=== PATIENT | male | born 1950 | race Caucasian/White ===

== ENCOUNTER → 2017-01-01 17:14 | Outpatient (CLI) | payer OTHER, SELFPAY ==
[2017-01-01 19:17] LABS: Cytology, Body Fluid / CSF SEE PATHOLOGY REPORT
[2017-01-09 10:45] LABS: Aldosterone, Serum 5.8 ng/dL (0.0-30.0); Renin, Plasma 1.303 ng/mL/hr (0.167-5.380)
== END | disposition home or self-care (01) ==
PROVIDERS: Visit Provider Urology
DX: C67.4 Malignant neoplasm of posterior wall of bladder (principal); D35.01 Benign neoplasm of right adrenal gland
CPT/HCPCS: 36415; 82088; 84244; 88108; 88313

== ENCOUNTER → 2017-09-11 14:38 | Outpatient (CLI) | payer OTHER, SELFPAY ==
--- NOTE | 2017-09-11 15:04 | CT_ITS ---
STUDY: CT CHEST WITH CONTRAST REASON FOR EXAM: Male, 66 years old. Metastatic renal cancer. RADIATION DOSAGE (If Supplied By Facility): CTDIvol = ( 19.55 ) mGy, DLP = ( 742.10 ) mGycm TECHNIQUE: Transaxial imaging was performed following intravenous administration of 100 ml of Isovue 300 contrast material. Individualized dose optimization techniques were used for this CT. COMPARISON: Multiple previous studies including CT of the chest 06/12/2017. FINDINGS: Normal lung volumes. Stable pleural-parenchymal scarring in the lower right hemithorax with elevation of the right hemidiaphragm and blunting of the right costophrenic angle. Stable 8 mm pleural-based nodule in the anterior right apex. No other nodules. Stable generalized volume loss on the right compared to left probably related to pleural parenchymal scarring in the lower hemithorax. Stable mild scarring anterior left lung base. Stable mild pleural plaque posterior left thorax. Stable cortical scarring across the posterior right lung base. Stable irregular pleural base soft tissue density or thickening adjacent to the right diaphragm Stable very small chronic right pleural effusion. No infiltrates. Normal heart and pericardium. Increasing mediastinal adenopathy enhancing subcarinal lymph node now measures 2.8 cm in greatest dimension versus 1.8 cm previously. Right paraesophageal enhancing lymph node now measures 2.3 cm versus 1 cm previously. The upper abdomen show fatty liver without focal abnormalities. No other definite abnormalities. Skeletal structures are grossly negative. CT/Chest WITH Contrast IMPRESSION: Stable findings in the lungs including stable pleural-parenchymal scarring in the lower right hemithorax. Increasing size of a subcarinal and right lower paraesophageal lymph node since previous exam. Electronically Signed: Feliz Phillips MD at 11:05 EDT , Service support ,
[2017-09-11 15:36] LABS: CREATININE FINGERSTICK 1.2 mg/dL (0.70-1.30)
== END ==
PROVIDERS: Family Provider Family Medicine; PCP Family Medicine; Visit Provider Urology
DX: C67.9 Malignant neoplasm of bladder, unspecified (principal); Z85.53 Personal history of malignant neoplasm of renal pelvis
CPT/HCPCS: 71260; Q9967

== ENCOUNTER 2017-10-05 07:43 | Day surgery (SDC) | payer OTHER, SELFPAY ==
[2017-09-28 13:15] VITALS: BP 138/77; PULSE 67; RESP 16; TEMP 36.9; O2SAT 96; BMI 33.9
[2017-09-28 13:38] LABS: Hematocrit 48.7 % (40-54); Hemoglobin 16.2 g/dl (13.0-16.5); Mean Corp Hgb Conc 33.3 g/gl (32-36); Mean Corpuscular Hgb 30.1 pg (27.0-32.0); Mean Corpuscular Volume 90.5 fL (80-94); Mean Platelet Vol. 10.4 fl (6.2-12.0); Platelet Count 289 K/mm3 (150-450); RBC Distribution Width CV 14.1 % (11.6-14.6); RBC Distribution Width SD 46.7 fl (35.1-43.9); Red Blood Count 5.38 M/mm3 (4.6-6.2); White Blood Count 10.6 K/mm3 (4.4-11.0)
[2017-09-28 13:39] LABS: Scan Indicated on CBC? Y/N NO
[2017-09-28 14:17] LABS: Thyroid Stim Hormone (TSH) 0.43 uIU/mL (0.358-3.74)
--- NOTE | 2017-10-05 | BLB_PTH ---
PATIENT: ASIA CAPPS LOC: [facility] [place][id number] AGE/SX: 66/M ROOM: RE10/05/[address]: Dr. Dionicio Teresa MD : 1950 BED: DIS: 10/05/2017 SPEC #: [id number] RECD: 10/05/17 13:45 STATUS: CLARISA AMANDA #: [id number] LAURA: 10/05/17 00:[address]: Dionicio Teresa DEPT: SURGICAL PATHOLOGY RECD BY: Bright Garcia ENTERED: 10/05/17 13:46 SP TYPE: TURB OTHR DR: Dr. Cara Valentine MD Tissues: Urinary bladder, NOS Procedures: Surgery Specimen Level IV HEADER OPERATION: Cysto, transurethral resection bladder, [employer] PRE-OP DIAGNOSIS: Bladder cancer TISSUE SUBMITTED: Bladder biopsy MICROSCOPIC DIAGNOSIS Bladder, biopsy: Focal marked urothelial atypia suspicious for flat carcinoma in situ.. Chronic inflammation and extensive calcification. SJ:lucy 10/08/17 COMMENT Immunohistochemistry ([id number]) supports the above diagnosis. Please make reference to previous specimen ([id number]) urinary bladder tumor, TUR with diagnosis of focal dysplastic epithelium suspicious for carcinoma in situ. Clinical correlation and appropriate follow up are necessary. Case has been reviewed in consultation with Dr. Terrell who concurs with the above diagnosis. IDC:AM MICROSCOPIC DESCRIPTION Slides are reviewed. GROSS DESCRIPTION Received in fixative is one container labeled with the patient's name and designated bladder biopsy. The specimen consists of three irregular fragments of coronado soft tissue that in aggregate measure 0.3 x 0.2 x 0.1 cm. The specimen is totally submitted in one cassette. / MARVA:lucy 10/05/17 TC:0 CPT: 37558
--- NOTE | 2017-10-05 | IMM_PTH ---
PATIENT: ASIA CAPPS LOC: [facility] [place] U#:[id number] AGE/SX: 66/M ROOM: RE10/05/[address]: Dr. Dionicio Teresa MD : 1950 BED: DIS: 10/05/2017 SPEC #: [id number] RECD: 10/08/17 14:28 STATUS: CLARISA REDavid #: [id number] LAURA: 10/05/17 00:[address]: Dionicio Teresa DEPT: IMMUNOHISTOCHEMISTRY RECD BY: Brianna Mosquera ENTERED: 10/08/17 14:29 SP TYPE: IMMUNO OTHR DR: Dr. Cara Valentine MD Tissues: Urinary bladder, NOS Procedures: CK20 (add) P53 (add) CK7 (initial) PHYSICIAN & INSTITUTION [place] [id number] SPECIMEN INFORMATION: Tissue Source: Bladder biopsy Clinical Info: Bladder cancer Specimen Number: [id number] CPT code: 98194, 27752 x2 METHODOLOGY: Deparaffinized sections of prefer/formalin-fixed tissue or PAP/DQ stained slides are incubated with monoclonal/polyclonal antibodies/oligonucleotide probes. Localization is made via biotin free immunoperoxidase method. Appropriate controls are performed and reacted as expected. Results on target cell population are indicated in the following table: RESULTS: ANTIBODY / CLONE RESULT CK7 (OV-TL12/30) positive CK20 (KS20.8) positive, focal, only in the umbrella cells. P53 (DO-7) positive These tests were developed and their performance characteristics determined by [facility]. They may not have been cleared or approved by the U.S. Food and Drug Administration. The FDA has determined that such clearance or approval is not necessary. INTERPRETATION: Bladder biopsy: Focal marked urothelial atypia suspicious for flat carcinoma in situ. SJ:lucy 10/09/17
[2017-10-05 08:23] VITALS: BP 114/76; PULSE 75; RESP 18; TEMP 37.5; O2SAT 96; BMI 33.9
[2017-10-05] MEDS: Cefazolin 2 GM in 0.9% Normal Saline 100 ML IV (10:58)
--- NOTE | 2017-10-05 11:25 | PCM.DC.URO ---
Discharge Diet: Light diet - advance as tolerated Discharge Activity: Return to Normal Activity Call your doctor if your incision/area has: Sudden Increased Bleeding Allergies/Adverse Reactions: Allergies lisinopril Allergy (Verified 09/28/17 13:01) Angioedema Medications to take at Discharge Amlodipine [Norvasc] 5 mg PO DAILY 11/19/13 Docusate Sodium [Colace] 100 mg PO DAILY 11/19/13 Fenofibrate [Tricor] 145 mg PO DAILY 11/19/13 Hydrocortisone 1% Crm [Hytone] 1 applic TOPICAL DAILY 11/19/13 Levothyroxine Sodium [Levoxyl] 175 mcg PO DAILY 11/19/13 Calcipotriene/Betamethasone [Calcipotriene-Betameth Dp Oint] 60 gm TP DAILY 02/07/16 Clobetasol Propionate/Emoll [Clobetasol Emollient 0.05% Crm] 30 gm TP DAILY 03/15/17 Betamethasone Dipropionate 15 gm TP DAILY 09/28/17 Ibuprofen/Diphenhydramine Cit [Advil Pm Caplet] 1 each PO PRN PRN 09/28/17 Ciprofloxacin [Cipro] 500 mg PO BID #6 tab 10/05/17 Hydrocodone/Acetaminophen [Biddle 5-325 Tablet] 1 ea PO Q4H PRN PRN 5 Days #14 tab 10/05/17 The following prescriptions were given: Hydrocodone/Acetaminophen [Biddle 5-325 Tablet] 1 ea PO Q4H PRN PRN 5 Days #14 tab PRN Reason: Pain Ciprofloxacin [Cipro] 500 mg PO BID #6 tab Primary Care Physician: Cara Valentine MD [Primary Care Provider] - Please Follow Up With: Dionicio Teresa MD When: follow up to be determined by path report, will call.
--- NOTE | 2017-10-05 11:27 | PCM.OPRPT ---
Report of Operation Date of Procedure: 10/05/17 Pre-Operative Diagnosis: Bladder cancer, tumor and lateral wall bladder with a bladder stone attached Post-Operative Diagnosis: The same Surgery/Procedure Performed:: Cystoscopy, transurethral resection of bladder tumor, c cystolitholapaxy and removal of small bladder stones. Instillation of mitomycin-C Description of Surgical Findings:: 66-year-old male taken back to the operating room after smooth induction of general anesthesia penis testicles were prepped and draped in usual sterile fashion, went into the bladder through the urethra with a 21 [place] rigid cystourethroscope the entire length of the urethra is normal pendulous urethra is normal bulbar urethra normal sphincter intact prostate mild hypertrophy but no severe obstruction inside the bladder he had on the lateral wall of the left side of the bladder papillary looking little tumor and stones encrusted on top of this I then used a biopsy forcep to scrape off the stones flush out the stones and then resected the area on the left side of the bladder. Specimen was sent off to the pathologist. I then cauterized the left side to obtain good hemostasis. I then distended the bladder inspected the bladder again the right ureteral orifice was normal, the left ureteral orifice had been resected and had a wide open ureteral orifice. There were a few reddish-looking areas in the trigone that were cauterized and on the right lateral wall. 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 Type of Anesthesia:: General Drains: none - Admit VTE Documentation VTE Present on Admission: No VTE Mechan Device Prophylaxis: SCD's VTE Pharm Prophylaxis ordered?: No Reason prophylaxis not ordered:: Treatment Not Indicated
--- NOTE | 2017-10-05 11:30 | OP.PCM_ITS ---
Report of Operation Date of Procedure: 10/05/17 Pre-Operative Diagnosis: Bladder cancer, tumor and lateral wall bladder with a bladder stone attached Post-Operative Diagnosis: The same Surgery/Procedure Performed:: Cystoscopy, transurethral resection of bladder tumor, c cystolitholapaxy and removal of small bladder stones. Instillation of mitomycin-C Description of Surgical Findings:: 66-year-old male taken back to the operating room after smooth induction of general anesthesia penis testicles were prepped and draped in usual sterile fashion, went into the bladder through the urethra with a 21 [place] rigid cystourethroscope the entire length of the urethra is normal pendulous urethra is normal bulbar urethra normal sphincter intact prostate mild hypertrophy but no severe obstruction inside the bladder he had on the lateral wall of the left side of the bladder papillary looking little tumor and stones encrusted on top of this I then used a biopsy forcep to scrape off the stones flush out the stones and then resected the area on the left side of the bladder. Specimen was sent off to the pathologist. I then cauterized the left side to obtain good hemostasis. I then distended the bladder inspected the bladder again the right ureteral orifice was normal, the left ureteral orifice had been resected and had a wide open ureteral orifice. There were a few reddish-looking areas in the trigone that were cauterized and on the right lateral wall. 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 Type of Anesthesia:: General Drains: none - Admit VTE Documentation VTE Present on Admission: No VTE Mechan Device Prophylaxis: SCD's VTE Pharm Prophylaxis ordered?: No Reason prophylaxis not ordered:: Treatment Not Indicated
[2017-10-05 11:37] VITALS: BP 114/76; BP 121/77; PULSE 88; RESP 16; TEMP 36.2; O2SAT 93
[2017-10-05 11:45] VITALS: BP 114/76; BP 128/78; PULSE 81; RESP 16; O2SAT 93
[2017-10-05 12:01] VITALS: BP 114/76; BP 115/81; PULSE 84; RESP 16; TEMP 36.4; O2SAT 95
[2017-10-05 13:00] VITALS: BP 114/76
== END 2017-10-05 13:05 | disposition home or self-care (01) ==
LOC: SDC 07:43 → AC 07:44
PROVIDERS: Anesthesiology; Family Provider Family Medicine; PCP Family Medicine; Visit Provider Urology
PROC: 0TBB8ZZ Excision of Bladder, Via Natural or Artificial Opening Endoscopic (ICD-10-PCS; CPT 51720; principal; 2017-10-05 10:40)
DX: C67.2 Malignant neoplasm of lateral wall of bladder (principal); N30.20 Other chronic cystitis without hematuria; N21.0 Calculus in bladder; N40.0 Benign prostatic hyperplasia without lower urinary tract symptoms; L40.9 Psoriasis, unspecified; E78.00 Pure hypercholesterolemia, unspecified; Z79.899 Other long term (current) drug therapy; Z85.528 Personal history of other malignant neoplasm of kidney
CPT/HCPCS: 51720; 52234; 52317; 84443; 85027; 88305; 88307; 88341; 88342; J7120; J2405; J3490; J9280

== ENCOUNTER 2017-11-05 12:20 | Inpatient (IN) | payer BC, SELFPAY ==
[2017-11-05] VITALS (27 sets, daily range): BP systolic 108–165; BP diastolic 70–109; PULSE 82–162; RESP 14–29; TEMP 36.3–36.9; O2SAT 92–96; BMI 33.8; BMI 33.9; BMI 33.3
--- NOTE | 2017-11-05 12:58 | EKG12_ITS ---
Test Reason : PALPS Blood Pressure : / mmHG Vent. Rate : 137 BPM Atrial Rate : 150 BPM P-R Int : 112 ms QRS Dur : 106 ms QT Int : 302 ms P-R-T Axes : 088 012 032 degrees QTc Int : 456 ms Sinus tachycardia Otherwise normal ECG Confirmed by CHRISTIE SON, ADAM ([id number]), makeup editor JUAN PABLO SALAZAR ([id number]) on 11/09/2017 2:09:02 PM Referred By: CASE/SYED Confirmed By:ADAM SORIANO MD
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
--- NOTE | 2017-11-05 13:02 | RAD_ITS ---
STUDY: X-RAY CHEST REASON FOR EXAM: Male, 66 years old. Palpitations. History of renal carcinoma and bladder carcinoma. TECHNIQUE: AP and lateral views of the chest. COMPARISON: Comparison is made with prior study dated March 15, 2017. FINDINGS: EKG electrodes are seen. Pleural parenchymal changes at the right lung base. These have progressed as compared to prior study. Mild increase in markings at the left lung base suggestive of atelectasis. Normal size heart. Normal mediastinum and kaya. Normal visualized pulmonary arteries. Normal visualized aortic arch and descending thoracic aorta. Normal visualized thoracic spine. Normal visualized ribs, clavicles, and shoulders. There is no demonstrated abnormality of the visualized soft tissue structures of the upper abdomen. RAD/Chest 1 View (Portable) IMPRESSION: Atelectasis and/or infiltrates at both lung bases more prominent on the right side with blunting of the right costophrenic angle. Electronically Signed: Avel Samuels MD at 14:03 EDT Tel [phone], Service support ,
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
[2017-11-05 13:16] LABS: Basophil# 0.04 X10^3/uL; Basophil% 0.3 % (0-1); Eosinophil# 0.45 X10^3/uL; Eosinophils% 3.9 % (0-5); Hematocrit 48.4 % (40-54); Hemoglobin 16.3 g/dl (13.0-16.5); Lymphocyte % 23.6 % (19-41); Mean Corp Hgb Conc 33.7 g/gl (32-36); Mean Corpuscular Hgb 30.5 pg (27.0-32.0); Mean Corpuscular Volume 90.5 fL (80-94); Mean Platelet Vol. 10.8 fl (6.2-12.0); Monocyte# 1.23 X10^3/uL; Monocyte% 10.8 % (0-10); Neutrophil # 6.98 X10^3/uL (2.7-7.7); Neutrophil % 61.1 % (47-70); Platelet Count 276 K/mm3 (150-450); RBC Distribution Width CV 14.1 % (11.6-14.6); RBC Distribution Width SD 45.6 fl (35.1-43.9); Red Blood Count 5.35 M/mm3 (4.6-6.2); White Blood Count 11.4 K/mm3 (4.4-11.0)
[2017-11-05 13:17] LABS: POSITIVE COUNT NO; POSITIVE DIFFERENTIAL NO; POSITIVE MORPHOLOGY NO
[2017-11-05] MEDS: Metoprolol Tartrate 5 MG/5 ML Vial IV ×2 (13:20→13:46)
[2017-11-05 13:21] LABS: Anion Gap 7 (5-15); BUN 19 mg/dL (7-18); BUN/Creat Ratio 16.2 RATIO (10-20); Calcium,Total 9.4 mg/dL (8.5-10.1); Chloride 110 mmol/L (98-107); Creatinine, Serum 1.17 mg/dL (0.70-1.30); EST Glomerular Filtration Rate 67 mL/min (>60); Est Glom Filt Rate - Afr Amer 81 mL/min (>60); Estimated Creatinine Clearance 72.08 ml/min; Glucose 103 mg/dL (74-106); Potassium 4.1 mmol/L (3.5-5.1); Sodium Level 142 mmol/L (136-145)
[2017-11-05 13:42] LABS: Bacteria 0 SEEN /hpf (None Seen); Mucous, Urine 0 SEEN /hpf (<or=2+)
[2017-11-05 13:48] LABS: Color, Urine Yellow (Yellow); Glucose, Dipstick Normal (Normal); Ketone-Dipstick Negative (Negative); Leukocyte Esterase-Dipstick 500 /ul (Negative); Nitrite-Dipstick Negative (Negative); Occult Blood-Urine 150 /ul (Negative); Protein-Dipstick 100 mg/dl (Negative); Urine Bilirubin Dipstick Negative (Negative); Urine Clarity Cloudy (Clear); Urine Urobilinogen Normal (Normal)
[2017-11-05 13:56] LABS: White Blood Cells >100 SEEN /hpf (0-5)
[2017-11-05 13:57] LABS: Red Blood Cells-Urine 0-5 SEEN /hpf (0-5); Squamous Epithelial Cells - UA 0-5 SEEN /hpf (0-5)
[2017-11-05 14:11] LABS: D-Dimer Quantitative (DVT/PE) 0.78 FEU/ug/m (0.27-0.49)
--- NOTE | 2017-11-05 14:12 | ED.RN ---
DR LYNCH NOTIFIED OF DDIMER RESULTS
--- NOTE | 2017-11-05 14:23 | CT_ITS ---
STUDY: CTA CHEST REASON FOR EXAM: Male, 66 years old. Palpitations. Elevated d-dimer. RADIATION DOSAGE (If Supplied By Facility): CTDIvol = ( 16.68 ) mGy, DLP = ( 728.90 ) mGycm TECHNIQUE: The examination was performed with the intravenous administration of 100 ml of Isovue 370 contrast material. Post-processing of the angiographic images was performed, with multiplanar reformation and 3D reconstruction. Individualized dose optimization techniques were used for this CT. COMPARISON: Chest, November 05, 2017. CT of the chest, September 11, 2017. FINDINGS: Normal enhancement of the main pulmonary artery and right and left pulmonary arteries. Normal enhancement of the bilateral peripheral pulmonary arteries. There is no demonstrated pulmonary embolism. Normal thoracic aorta and visualized great vessels. There is no demonstrated aortic dissection. Normal heart. There is minimal pericardial effusion versus pericardial thickening anteriorly. There is nonspecific subcentimeter prevascular paratracheal and AP window lymphadenopathy. There is a 3.2 x 2.1 x 3.5 cm subcarinal lymph node. Normal hilar regions. Normal visualized trachea and bronchi. The lungs are well expanded. There is minimal atelectatic cysts at the right lung base. Lungs are otherwise clear. There is a tiny right pleural effusion. Normal chest wall structures. Normal osseous structures. There is a type I hiatal hernia. The abdomen is unchanged. CT/CTA Chest W/WO Contrast IMPRESSION: 1. No evidence of pulmonary embolus. 2. No aortic dissection or aneurysm. 3. Small right pleural effusion and atelectasis. 4. Stable enlarged left subcarinal lymph node. 5. Hiatal hernia Electronically Signed: Martín Davenport DO at 15:14 EDT Tel [phone], Service support ,
[2017-11-05] MEDS: 0.9% Normal Saline 1,000 ML 999 ML IV (14:27)
[2017-11-05] MEDS: Enoxaparin 120 MG/0.8 ML Syringe SC (15:52)
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
[2017-11-05] MEDS: dilTIAZem 25 MG/5 ML Vial 10 MG IV BOLUS (18:00)
--- NOTE | 2017-11-05 20:06 | ECHOTEE_ITS ---
Reason For Study: AFIB Medication WHITLEY probe passed with minimal difficulty. No complications were noted. Cetacaine Topical [place] given X3 orally. Versed 2 mg given slow IVP. Fentanyl 50 mcg given slow IVP. Performed a rapid injection of agitated mix of 9 cc saline and 1cc air to assess for atrial septal defect. Left Ventricle Normal LV size. Left ventricular systolic function is normal. The estimated ejection fraction is 60 %. No regional wall motion abnormalities noted. Right Ventricle Normal RV size. Normal systolic function. Atria Bubble contrast study negative for right to left interatrial shunt. Normal left atrium. No thrombus is detected in the left atrial appendage. Normal right atrium. Mitral Valve Normal mitral valve. Mild (1+) eccentric mitral valve insufficiency. Tricuspid Valve Normal tricuspid valve. Mild (1+) tricuspid valve insufficiency. Aortic Valve Normal aortic valve. Trisinus/trileaflet aortic valve. Pulmonic Valve Normal pulmonic valve. Vessels Normal aortic root. The pulmonary artery is normal size. Pericardium No pericardial effusion. Interpretation Summary Normal LV size. Left ventricular systolic function is normal. The estimated ejection fraction is 60 %. No thrombus is detected in the left atrial appendage. Mild (1+) eccentric mitral valve insufficiency. Mild (1+) tricuspid valve insufficiency. Ordering Physician: Austyn Cassidy Referring Physician: Dionicio Teresa Performed By: Amanda Schwartz, RDCS, RVT
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
[2017-11-05] MEDS: 0.9% NaCl Peripheral Flush Adult/Peds IV (20:50)
[2017-11-05] MEDS: dilTIAZem 25 MG/5 ML Vial 20 MG IV BOLUS (20:51)
[2017-11-05] MEDS: Furosemide 20 MG/2 ML VIAL IV (20:51)
[2017-11-05] MEDS: APIXABAN 5 MG TABLET PO (22:04)
[2017-11-05] MEDS: 0.9% Normal Saline 1,000 ML 15 ML IV (22:05)
--- NOTE | 2017-11-05 23:25 | NURSING ---
sharri Cassidy's order for IV placement for procedure tomorrow- stated to avoid LAC. patient currently has a 20 gauge in his LAC. this RN attempted to start a new IV in patient's right arm. attempted twice and was unable to successfully start a second IV. spoke with charger Evaristo Sanford and he stated it was okay to use LAC since he did not want me to poke the patient anymore.
[2017-11-06] VITALS (27 sets, daily range): BP systolic 92–133; BP diastolic 56–79; PULSE 75–105; RESP 16–21; TEMP 36.6–36.8; O2SAT 91–97; BMI 33.3
[2017-11-06] MEDS: Levothyroxine 175 MCG Tablet PO (05:09)
[2017-11-06 06:29] LABS: ALB/GLOB Ratio 0.9 RATIO (0.9-2.4); AST(SGOT) 40 U/L (15-37); Alanine Aminotransfer ALT/SGPT 27 U/L (16-61); Albumin, Serum 3.4 g/dL (3.2-5.0); Alkaline Phosphatase 53 U/L (45-117); Anion Gap 9 (5-15); BUN 15 mg/dL (7-18); BUN/Creat Ratio 14.3 RATIO (10-20); Calcium,Total 8.8 mg/dL (8.5-10.1); Chloride 105 mmol/L (98-107); Cholesterol 159 mg/dL (200); Creatinine, Serum 1.05 mg/dL (0.70-1.30); EST Glomerular Filtration Rate 75 mL/min (>60); Est Glom Filt Rate - Afr Amer 91 mL/min (>60); Estimated Creatinine Clearance 80.32 ml/min; Globulin 3.8 g/dL (2.2-4.2); Glucose 119 mg/dL (74-106); High Density Lipoprotein 26 mg/dL; Potassium 4.3 mmol/L (3.5-5.1); Protein, Total 7.2 g/dL (6.4-8.2); Sodium Level 137 mmol/L (136-145); Thyroid Stim Hormone (TSH) 0.39 uIU/mL (0.358-3.74); Triglycerides 379 mg/dL; Very Low Density Lipoprotein 76 mg/dL (5-40)
--- NOTE | 2017-11-06 09:13 | PCM.PN.CARD ---
Subjectve: Patient seen and evaluated. Still in atrial flutter. Objective: Vital Signs Temp Pulse Resp BP Pulse Ox 98.1 F 105 H 17 127/78 H 94 11/06/17 09:00 11/06/17 09:00 11/06/17 09:00 11/06/17 09:00 11/06/17 09:00 Oxygen Delivery Method Room Air Weight: 253 lb 1.451 oz Body Mass Index (BMI) 33.3 Intake and Output for Last 24 Hours 11/04/17 11/05/17 11/06/17 23:59 23:59 23:59 Intake Total 1461 / 1461 253.3 / 253.3 Output Total 1700 / 1700 550 / 550 Balance -239 / -239 -296.7 / -296.7 General: Awake, Alert, Oriented x 3 HEENT: PERRL, EOMI, Sclera Non Icteric Neck: Supple, Good ROM, No Lymph Node Enlargement Lungs: Clear to auscultation Cardiovascular: Irregular Rhythm, Normal S1, Normal S2, No Murmurs, No Rubs, No Gallops Vascular: No Carotid Bruits, Normal Femoral Pulses, Normal Radial Pulses, Normal Dorsalis Pedal Pulse, Normal Posterior Tibial Pulses Abdomen: Bowel Sounds Present, Soft, Non Tender, No HSM, No Organomegaly Extremities: No Cyanosis, No Clubbing, No edema Neurological: No Focal Motor or Sensory Deficit 11/05/17 18:03: Troponin I < 0.015 11/05/17 20:05: Troponin I < 0.015 11/06/17 05:30: Sodium 137, Potassium 4.3, Chloride 105, Carbon Dioxide 23.0, Anion Gap 9, BUN 15, Creatinine 1.05, Est GFR (MDRD) Af Amer 91, Est GFR (MDRD) Non-Af 75, BUN/Creatinine Ratio 14.3, Glucose 119 H, Calcium 8.8, Total Bilirubin 0.60, Triglycerides 379 H, Cholesterol 159, LDL Cholesterol 57, VLDL Cholesterol 76 H, HDL Cholesterol 26 L Rhythm: EKG: ECHO: Stress Test: Cardiac Cath: PCI: CT Surgery: Holter monitor: EPS: PPM: CXR: Chest CT Scan: Medical Necessity - Tobacco Use Smoking Status: Former smoker Tobacco Use: Cigarettes Assessment/Plan 1. Atrial flutter.-Persistent He presents with persistent symptomatic atrial flutter. The exact duration is unknown but is likely approximately a month. At this time with the rapid ventricular response rate my recommendation will be to continue him on the intravenous Cardizem and discontinue his amlodipine. He will also be anticoagulated with apixaban 5 mg twice a day. He underwent a trans esophageal echocardiogram this morning which did not demonstrate any evidence of left atrial appendage thrombus. His ejection fraction was noted to be normal. There was mild mitral regurgitation mild tricuspid regurgitation and structurally normal valves. He will be scheduled for cardioversion later this afternoon. 2. Shortness of breath He appears to be in mild congestive heart failure likely secondary to the atrial fibrillation with a rapid ventricular response rate. He will receive a dose of diuretics this evening. 3. Hypertension Blood pressure is under excellent control on the current medical therapy. However due to his atrial flutter I may recommend that after his cardioversion he be placed on a beta-lety in addition to his amlodipine. Thank you for allowing me to participate in the care of your patient. Please don't hesitate to call if any issues arise Addendum: DC cardioversion. Patient underwent trans esophageal echocardiogram earlier today with no evidence of left atrial appendage thrombus. He was therefore prepared for a DC cardioversion. After informed consent was obtained the patient had anterior posterior pads applied. He was seen by Dr. Mak of the critical care division who administered 140 mg of intravenous propofol. 200 J of biphasic DC cardioversion energy were applied with prompt reversal to sinus rhythm. Plan is for patient to continue with metoprolol 25 mg twice a day Continue amlodipine 5 mg a day Eliquis 5 mg twice a day Patient can be discharged for outpatient follow-up through my office. In 2-4 weeks.
--- NOTE | 2017-11-06 11:00 | EKG12_ITS ---
Test Reason : Blood Pressure : / mmHG Vent. Rate : 085 BPM Atrial Rate : 315 BPM P-R Int : 000 ms QRS Dur : 102 ms QT Int : 402 ms P-R-T Axes : 063 -02 048 degrees QTc Int : 478 ms Atrial flutter with variable A-V block Abnormal ECG Confirmed by ATA SON, FRANCK ([id number]), art editor JUAN PABLO SALAZAR ([id number]) on 11/08/2017 1:11:38 PM Referred By: PAT Confirmed By:FRANCK BERUMEN MD
--- NOTE | 2017-11-06 11:09 | CASEMGMT ---
Face to Face with patient for initial transition planning/care coordination assessment. ABNER VILLALOBOS introduced self and role at [facility], pt voices understanding and consents to assessment at this time. Pt is lying in bed in and out of sleep at this time. is A/O x4 at this time and answers all questions for pt appropriately at this time. Care providers, pharmacy, and demographics verified. See attached link. Pt voices no further concerns/needs at this time. Advised pt to ask for CM if any further questions/concerns/needs arise, voices understanding. PLAN: [place] AB[place] V[place]OB[place]
[2017-11-06] MEDS: APIXABAN 5 MG TABLET PO (11:30)
--- NOTE | 2017-11-06 12:39 | NURSING ---
PER DR. SORIANO-PATIENT MAY BE DISCHARGED AT 1500 IF REMAINS IN SR.
[2017-11-06] MEDS: Fenofibrate 145 MG Tablet PO (12:52)
[2017-11-06] MEDS: Clobetasol Propionate 0.05% Cream 1 APPLIC TOPICAL (12:53)
[2017-11-06] MEDS: Hydrocortisone 2.5% Crm 1 APPLIC TOPICAL (12:54)
[2017-11-06] MEDS: Docusate Sodium 100 MG Capsule PO (12:55)
--- NOTE | 2017-11-06 13:06 | PCM.OP.BLANK ---
Problem List (1) Atrial flutter with rapid ventricular response Status: Acute Operative Report Date of Procedure: 11/06/17 - Conscious sedation CONSCIOUS SEDATION REPORT BRIEF HISTORY OF PRESENT ILLNESS: The patient is a 66-year-old male with a history of paroxysmal atrial fibrillation that presented to [facility] on 11/05/2017 secondary to an shortness of breath. Patient reports multiple previous surgeries without any esthesia complications. Patient has been n.p.o. since midnight. Patient did have a WHITLEY at approximately 8:00 this morning with 2 mg of Versed and 50 mcg of fentanyl. Patient does report that he is a former smoker, but is never been diagnosed with COPD or asthma. Patient's last known ejection fraction was 60%. Should not was given a dose of Eliquis therapy today. PHYSICAL EXAMINATION: VITAL SIGNS: Reviewed and were acceptable. GENERAL: The patient is a male, in no apparent distress, speaking in full sentences. HEENT: Normocephalic, atraumatic. Mucous membranes are moist and pink. Good mouth opening noted. Trachea is midline. Good neck mobility. Mallampati 3 CHEST: S1, S2 irregularly irregular. No murmurs, rubs or gallops were noted. LUNGS: Clear to auscultation bilaterally without appreciable wheezes, rales or rhonchi. ABDOMEN: Soft, nontender, nondistended. Positive bowel sounds. EXTREMITIES: There is no clubbing, cyanosis or edema. ASA Class: II DESCRIPTION OF PROCEDURE: After confirmation of informed consent, the patient's anesthesia plan was reviewed in detail. Propofol was chosen. Risks and benefits were reviewed and the patient agreed to proceed. At 12:25 PM, the patient was given 40 mg of propofol. Patient required a total of 140 mg of propofol to achieve appropriate sedation. The patient was given a 200 J synchronized cardio[address] Dr. Cassidy. This was successful in achieving sinus bradycardia as verified by EKG. The patient was monitored until 12:37 PM, at which time he reached his baseline mental status and function. The patient tolerated the procedure well. COMPLICATIONS: None ESTIMATED BLOOD LOSS: None RECOMMENDATIONS: Okay to recover in usual fashion. Code Visit 9xxxx: Other Procedure See Report - 91943 -12 minutes of conscious sedation
--- NOTE | 2017-11-06 14:02 | PCM.DC ---
- Discharge Diagnoses Current Active Problems: Current Active and Chronic Problems Atrial flutter with rapid ventricular response (Acute) Reason(s) for Visit for Discharge Instructions: Fatigue You will use the following diet at home:: Cardiac Your food should be the consistency of: Regular Your liquids should be the consistency of: Regular/Thin Discharge Activity: Return to Normal Activity Weight Bearing Status: Weight bearing as tolerated Additional Instructions: Note changes to your medications. Take all your medications as prescribed. Continue to be on a low fat, low salt diet. Follow-up with your chain carrier in 2-4 weeks. Allergies/Adverse Reactions: Allergies lisinopril Allergy (Verified 11/05/17 12:21) Angioedema Medications to take at Discharge Amlodipine [Norvasc] 5 mg PO DAILY 11/19/13 Docusate Sodium [Colace] 100 mg PO DAILY 11/19/13 Fenofibrate [Tricor] 145 mg PO DAILY 11/19/13 Hydrocortisone 1% Crm [Hytone] 1 applic TOPICAL DAILY 11/19/13 Levothyroxine Sodium [Levoxyl] 175 mcg PO DAILY 11/19/13 Calcipotriene/Betamethasone [Calcipotriene-Betameth Dp Oint] 1 each TP DAILY 02/07/16 Clobetasol Propionate/Emoll [Clobetasol Emollient 0.05% Crm] 1 each TP DAILY 03/15/17 Apixaban [Eliquis] 5 mg PO BID #60 tab 11/06/17 Metoprolol Tartrate [Lopressor (beta lety)] 25 mg PO BID #60 tab 11/06/17 The following prescriptions were given: Apixaban [Eliquis] 5 mg PO BID #60 tab Metoprolol Tartrate [Lopressor (beta lety)] 25 mg PO BID #60 tab Primary Care Physician: Cara Valentine MD [Primary Care Provider] - Please follow up with your Primary Care Physician in: within 2 weeks Please Follow Up With: Austyn Cassidy MD When: within 2-4 weeks Proposed Discharge Date: 11/06/17
--- NOTE | 2017-11-06 15:33 | PCM.DC.SUM ---
Discharge Date and Diagnosis Date of Admission: 11/05/17 Date of Discharge: 11/06/17 - Primary Discharge Diagnosis Active and Suspected Problems Atrial flutter with rapid ventricular response (Acute) - Secondary Discharge Diagnosis Chronic Problems Angioedema (Chronic) Fatty liver disease, nonalcoholic (Chronic) Hypothyroid (Chronic) Psoriasis (Chronic) Dyslipidemia (Chronic) Renal cell carcinoma (Chronic) s/p nephrectomy Transitional cell carcinoma of bladder (Chronic) Hospital Course and Treatment Imaging Results: Clinical Impression(s) from Imaging Studies Chest X-Ray 11/05/17 13:02 IMPRESSION: Atelectasis and/or infiltrates at both lung bases more prominent on the right side with blunting of the right costophrenic angle. Electronically Signed: Avel Samuels MD at 14:03 EDT Tel [phone], Service support , Chest CTA 11/05/17 14:23 IMPRESSION: 1. No evidence of pulmonary embolus. 2. No aortic dissection or aneurysm. 3. Small right pleural effusion and atelectasis. 4. Stable enlarged left subcarinal lymph node. 5. Hiatal hernia Electronically Signed: Martín Davenport DO at 15:14 EDT Tel [phone], Service support , Cardiology Operations: None, - - robotic Right adrenalectomy Procedures: 2-D Echocardiogram, Stress test Summary of Care Provided: The patient is a 66 year old M with past medical history of hypertension who was admitted through the emergency room with complaints of palpitations and irregular heartbeat. Patient feels that this has been going on for more than a month with occasional weakness and diaphoresis. He was admitted to telemetry bed, started on Cardizem IV with improvement in his heart rate. He continued to remain in atrial flutter. He underwent cardioversion and converted to normal sinus rhythm. Patient was maintained on metoprolol, Eliquis, and his home amlodipine was continued. Discharge Diet: Low fat/ Low Cholesterol, 2000 mg Sodium Diet Discharge Activity: Return to Normal Activity Weight Bearing Status: Weight bearing as tolerated Home Medications: Medications to take at Discharge Amlodipine [Norvasc] 5 mg PO DAILY 11/19/13 Docusate Sodium [Colace] 100 mg PO DAILY 11/19/13 Fenofibrate [Tricor] 145 mg PO DAILY 11/19/13 Hydrocortisone 1% Crm [Hytone] 1 applic TOPICAL DAILY 11/19/13 Levothyroxine Sodium [Levoxyl] 175 mcg PO DAILY 11/19/13 Calcipotriene/Betamethasone [Calcipotriene-Betameth Dp Oint] 1 each TP DAILY 02/07/16 Clobetasol Propionate/Emoll [Clobetasol Emollient 0.05% Crm] 1 each TP DAILY 03/15/17 Apixaban [Eliquis] 5 mg PO BID #60 tab 11/06/17 Metoprolol Tartrate [Lopressor (beta lety)] 25 mg PO BID #60 tab 11/06/17 Following Prescrptions Were Given to Patient: Apixaban [Eliquis] 5 mg PO BID #60 tab Metoprolol Tartrate [Lopressor (beta lety)] 25 mg PO BID #60 tab Primary Care Physician: Cara Valentine MD [Primary Care Provider] - Please follow up with your Primary Care Physician in: within 2 weeks Please Follow Up With: Austyn Cassidy MD When: within 2-4 weeks Disposition: Home Minutes spent on discharge:: 40 Patient Condition:: Stable Medical Necessity - Tobacco Use Smoking Status: Former smoker Tobacco Use: Cigarettes Meaningful Use Info Meaningful Use Diagnoses (Choose all that apply): None applicable Code Visit Inpatient E&M: 74859 Disch Hosp
== END 2017-11-06 16:18 | disposition home or self-care (01) | DRG 310 ==
LOC: ED 16:37 → PCU 16:39
PROVIDERS: Emergency Provider Emergency Medicine; Family Provider Family Medicine; PCP Family Medicine; Visit Provider Internal Medicine
DX: I48.92 Unspecified atrial flutter (principal); C67.9 Malignant neoplasm of bladder, unspecified; I48.0 Paroxysmal atrial fibrillation; I11.0 Hypertensive heart disease with heart failure; I50.9 Heart failure, unspecified; E78.5 Hyperlipidemia, unspecified; E03.9 Hypothyroidism, unspecified; Z79.899 Other long term (current) drug therapy; Z90.5 Acquired absence of kidney; Z85.528 Personal history of other malignant neoplasm of kidney; Z87.891 Personal history of nicotine dependence
CPT/HCPCS: 36415; 71045; 71275; 80048; 80053; 80061; 81001; 84443; 84484; 85025; 85379; 87086; 92960; 93005; 93312; 93320; 93325; 99285; 99406; J7030; Q9967; A4216; J1940; J2310

== ENCOUNTER → 2018-04-04 12:16 | Outpatient (CLI) | payer MEDICARE, BC, SELFPAY ==
[2018-04-04 14:10] LABS: Absolute Lymphocyte Count 1.81 X10^3/ul (0.83-4.51); Absolute Neutrophil Count 8.3 X10^3/uL (2.0-7.7); Basophil# 0.05 X10^3/uL; Basophil% 0.4 % (0-1); Eosinophil# 0.38 X10^3/uL; Eosinophils% 3.2 % (0-5); Hematocrit 45.6 % (40-54); Hemoglobin 15.1 g/dl (13.0-16.5); Lymphocyte # 1.81 X10^3/ul (4.0); Lymphocyte % 15.4 % (19-41); Mean Corp Hgb Conc 33.1 g/gl (32-36); Mean Corpuscular Hgb 30.6 pg (27.0-32.0); Mean Corpuscular Volume 92.5 fL (80-94); Mean Platelet Vol. 10.5 fl (6.2-12.0); Monocyte# 1.14 X10^3/uL; Monocyte% 9.7 % (0-10); Neutrophil # 8.32 X10^3/uL (2.7-7.7); Neutrophil % 70.8 % (47-70); Platelet Count 355 K/mm3 (150-450); RBC Distribution Width CV 14.5 % (11.6-14.6); RBC Distribution Width SD 47.4 fl (35.1-43.9); Red Blood Count 4.93 M/mm3 (4.6-6.2); White Blood Count 11.8 K/mm3 (4.4-11.0)
[2018-04-04 14:11] LABS: POSITIVE COUNT NO; POSITIVE DIFFERENTIAL NO; POSITIVE MORPHOLOGY NO
[2018-04-04 14:26] LABS: ALB/GLOB Ratio 0.9 RATIO (0.9-2.4); AST(SGOT) 33 U/L (15-37); Alanine Aminotransfer ALT/SGPT 39 U/L (16-61); Alkaline Phosphatase 50 U/L (45-117); Anion Gap 7 (5-15); BUN 19 mg/dL (7-18); Calcium,Total 9.8 mg/dL (8.5-10.1); Chloride 106 mmol/L (98-107); Creatinine, Serum 1.36 mg/dL (0.70-1.30); EST Glomerular Filtration Rate 56 mL/min (>60); Est Glom Filt Rate - Afr Amer 68 mL/min (>60); Globulin 4.4 g/dL (2.2-4.2); Glucose 80 mg/dL (74-106); Magnesium 2.1 mg/dL (1.6-2.6); Protein, Total 8.4 g/dL (6.4-8.2); Sodium Level 139 mmol/L (136-145)
== END ==
PROVIDERS: Family Provider Family Medicine; PCP Family Medicine; Visit Provider Family Medicine
DX: R00.2 Palpitations (principal)
CPT/HCPCS: 36415; 80053; 83735; 84443; 85025

== ENCOUNTER → 2018-04-26 06:21 | Outpatient (CLI) | payer MEDICARE, BC, SELFPAY ==
--- NOTE | 2018-04-26 11:45 | STRESSREP ---
Stress Test Report Exercise myocardial perfusion stress test. 67-year-old man with a history of chest pain. Stress protocol: Resting EKG demonstrates sinus rhythm with a rate of 62 bpm normal intervals and noted resting blood pressure 138/80 mmHg. The patient exercised according to regular Willian protocol for total duration of 6 minutes and 30 seconds the maximum heart rate attained was 130 bpm is 83% maximum predicted heart rate the maximum workload was 7.7 metabolic equivalents. At rest there were no ST or T wave changes noted suggest ischemia peak exercise upsloping ST changes only were noted with no meet the criteria for ischemia. No clinical angina was noted the test was terminated due to leg fatigue. The resting blood pressure was 138/80 with a peak blood pressure 174/70 mmHg. Myocardial perfusion protocol. 14.9 mCi of technetium 99m sestamibi was injected at rest. The patient exercised according to regular Willian protocol for total duration of 6-1/2 minutes at peak exercise 44.8 mCi of technetium 99m sestamibi was injected stress images were obtained stress and rest images were reconstructed and compared in the short axis vertical long horizontal long axis. Gated images were also obtained next Perfusion SPECT analysis: Review of the stress images demonstrate normal uptake of tracer noted in all areas of the myocardium the resting images similarly demonstrate normal uptake of tracer noted in all areas of the myocardium. No areas of reversibility are noted suggest ischemia no previous infarct is noted. Gated SPECT analysis: The gated ejection fraction is 73%. Conclusion: Normal exercise myocardial perfusion stress test at a moderate workload. No clinical angina noted. Good functional capacity. Preserved ejection fraction.
== END ==
PROVIDERS: Family Provider Family Medicine; PCP Family Medicine; Referring Provider Nurse Practitioner Family; Visit Provider Nurse Practitioner Family
DX: I48.92 Unspecified atrial flutter (principal); I10 Essential (primary) hypertension; R07.9 Chest pain, unspecified
CPT/HCPCS: 78452; 93017; A9500; A4216

== ENCOUNTER 2018-08-31 16:17 | Observation (INO) | payer MEDICARE, BC, SELFPAY ==
[2018-08-31 08:28] VITALS: BMI 34.8
[2018-08-31 16:18] VITALS: BP 130/83; PULSE 110; RESP 16; TEMP 37.7; O2SAT 93; BMI 35.2
--- NOTE | 2018-08-31 17:16 | ED.VISSUMM ---
- ER Visit Summary Date of Service: 08/31/18 Chief Complaint: Left facial swelling History of Present Illness: The patient is a 67 M presenting with left facial swelling. He states this started yesterday and worsened today. He went to urgent care this morning and was started on penicillin. He is currently on immune therapy/chemotherapy for renal cell carcinoma. His last treatment was on Sunday. He called his oncologist who advised to come to the ED. He has had fever with temperature up to 100.7 at home. Physical Examination: Vitals are stable. Temperature 99.8. Alert no acute distress. HEENT exam left maxillary swelling, no intraoral fluctuance. No sublingual edema Neck is supple. Lungs are clear and equal bilaterally. Heart is regular and tachycardic Abdomen is soft nontender nondistended. Extremities are unremarkable. Skin is warm and dry. No focal neurologic deficit. Remainder of exam is unremarkable. Emergency Department Course and Treatment: CBC shows white count 13.4. Chemistries unremarkable. Patient was given IV fluids, clindamycin. He was given Tylenol, Morphine, Zofran. Discussed with the hospitalist for observation. Disposition: Observation Impression: Dental infection, left facial swelling This note was generated with [employer] dictation software. It may contain incorrect words, spelling, and punctuation that were not noted in review of the chart prior to signing ED Disposition - Plan for ED Patient: Referrals: Cara Valentine MD [Primary Care Provider] -
[2018-08-31 17:34] VITALS: BP 152/77; PULSE 94; PULSE 96; RESP 18; RESP 20; TEMP 38.2; O2SAT 94; O2SAT 96
[2018-08-31 17:37] LABS: Absolute Lymphocyte Count 1.73 X10^3/ul (0.83-4.51); Absolute Neutrophil Count 10.2 X10^3/uL (2.0-7.7); Basophil# 0.03 X10^3/uL; Basophil% 0.2 % (0-1); Eosinophil# 0.15 X10^3/uL; Eosinophils% 1.1 % (0-5); Hematocrit 47.1 % (40-54); Hemoglobin 15.7 g/dl (13.0-16.5); Lymphocyte # 1.73 X10^3/ul (4.0); Lymphocyte % 12.9 % (19-41); Mean Corp Hgb Conc 33.3 g/gl (32-36); Mean Corpuscular Hgb 30.8 pg (27.0-32.0); Mean Corpuscular Volume 92.5 fL (80-94); Mean Platelet Vol. 10.5 fl (6.2-12.0); Monocyte# 1.33 X10^3/uL; Monocyte% 9.9 % (0-10); Neutrophil # 10.17 X10^3/uL (2.7-7.7); Neutrophil % 75.8 % (47-70); Platelet Count 256 K/mm3 (150-450); RBC Distribution Width CV 14.7 % (11.6-14.6); RBC Distribution Width SD 49.9 fl (35.1-43.9); Red Blood Count 5.09 M/mm3 (4.6-6.2); White Blood Count 13.4 K/mm3 (4.4-11.0)
[2018-08-31 17:40] LABS: POSITIVE COUNT NO; POSITIVE DIFFERENTIAL NO; POSITIVE MORPHOLOGY NO
[2018-08-31 17:49] LABS: Anion Gap 9 (5-15); BUN 18 mg/dL (7-18); BUN/Creat Ratio 15.5 RATIO (10-20); Calcium,Total 9.2 mg/dL (8.5-10.1); Chloride 103 mmol/L (98-107); Creatinine, Serum 1.16 mg/dL (0.70-1.30); EST Glomerular Filtration Rate 67 mL/min (>60); Est Glom Filt Rate - Afr Amer 81 mL/min (>60); Estimated Creatinine Clearance 69.68 ml/min; Glucose 148 mg/dL (74-106); Potassium 3.8 mmol/L (3.5-5.1); Sodium Level 139 mmol/L (136-145)
[2018-08-31 18:00] VITALS: BP 131/75; PULSE 84; RESP 18; TEMP 37.2; O2SAT 95
--- NOTE | 2018-08-31 18:16 | NURSING ---
MED SURG DENTAL INFECTION PAT
[2018-08-31 18:32] VITALS: RESP 18
[2018-08-31] MEDS: Acetaminophen 500 MG Tablet 1000 MG PO (18:38)
[2018-08-31] MEDS: Ondansetron 4 MG/2 ML Vial IV (18:38)
[2018-08-31] MEDS: Morphine 4 MG/ML Syringe IV (18:38)
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
[2018-08-31 19:23] VITALS: BMI 35.9
[2018-08-31 19:28] VITALS: BP 126/74; PULSE 97; RESP 16; TEMP 37; O2SAT 92
[2018-08-31] MEDS: Ceftriaxone 1 GM/50 ML BAG IV (20:40)
[2018-08-31 22:59] VITALS: BP 126/74; PULSE 97
[2018-08-31] MEDS: Metoprolol Tartrate 25 MG Tablet PO (22:59)
[2018-08-31] MEDS: APIXABAN 5 MG TABLET PO (23:00)
[2018-09-01 03:00] VITALS: BP 109/65; PULSE 78; RESP 18; TEMP 37.2; O2SAT 95
[2018-09-01] MEDS: Acetaminophen 325 MG Tablet 650 MG PO (04:24)
[2018-09-01] MEDS: Levothyroxine 75 MCG Tablet PO (05:59)
[2018-09-01 06:55] LABS: Absolute Lymphocyte Count 1.41 X10^3/ul (0.83-4.51); Absolute Neutrophil Count 9.3 X10^3/uL (2.0-7.7); Basophil# 0.02 X10^3/uL; Basophil% 0.2 % (0-1); Eosinophils% 1.6 % (0-5); Hematocrit 41.8 % (40-54); Hemoglobin 13.5 g/dl (13.0-16.5); Lymphocyte # 1.41 X10^3/ul (4.0); Lymphocyte % 11.5 % (19-41); Mean Corp Hgb Conc 32.3 g/gl (32-36); Mean Corpuscular Hgb 30.3 pg (27.0-32.0); Mean Corpuscular Volume 93.9 fL (80-94); Mean Platelet Vol. 10.6 fl (6.2-12.0); Monocyte# 1.26 X10^3/uL; Monocyte% 10.3 % (0-10); Neutrophil # 9.33 X10^3/uL (2.7-7.7); Neutrophil % 76.2 % (47-70); Platelet Count 237 K/mm3 (150-450); RBC Distribution Width CV 14.9 % (11.6-14.6); RBC Distribution Width SD 50.1 fl (35.1-43.9); Red Blood Count 4.45 M/mm3 (4.6-6.2); White Blood Count 12.2 K/mm3 (4.4-11.0)
[2018-09-01 06:59] LABS: POSITIVE COUNT NO; POSITIVE DIFFERENTIAL NO; POSITIVE MORPHOLOGY NO
[2018-09-01 07:10] LABS: Anion Gap 7 (5-15); BUN 15 mg/dL (7-18); BUN/Creat Ratio 14.9 RATIO (10-20); Calcium,Total 8.3 mg/dL (8.5-10.1); Chloride 106 mmol/L (98-107); Creatinine, Serum 1.01 mg/dL (0.70-1.30); EST Glomerular Filtration Rate 79 mL/min (>60); Est Glom Filt Rate - Afr Amer 95 mL/min (>60); Estimated Creatinine Clearance 80.03 ml/min; Glucose 118 mg/dL (74-106); Potassium 3.9 mmol/L (3.5-5.1); Sodium Level 137 mmol/L (136-145)
[2018-09-01 07:49] VITALS: BP 123/81; PULSE 68; RESP 16; TEMP 36.4; O2SAT 94
[2018-09-01 07:54] VITALS: PULSE 67
[2018-09-01] MEDS: Metoprolol Tartrate 25 MG Tablet PO (07:54)
[2018-09-01] MEDS: Fenofibrate 145 MG Tablet PO (07:54)
[2018-09-01] MEDS: amLODIPine 5 MG Tablet PO ×2 (07:54→07:55)
[2018-09-01] MEDS: APIXABAN 5 MG TABLET PO (07:54)
[2018-09-01] MEDS: Hydrocortisone 2.5% Crm 1 APPLIC TOPICAL (07:55)
[2018-09-01] MEDS: Docusate Sodium 100 MG Capsule PO (07:55)
[2018-09-01] MEDS: Clobetasol Propionate 0.05% Cream 1 APPLIC TOPICAL (07:55)
[2018-09-01] MEDS: Furosemide 20 MG Tablet PO (07:56)
--- NOTE | 2018-09-01 08:29 | DCINST_ITS ---
- Discharge Diagnoses Current Active Problems: Current Active and Chronic Problems (Last Reviewed 08/31/18 @ 18:52 by Bridger Hobbs DO) Sinusitis (Acute) You will use the following diet at home:: Regular Your food should be the consistency of: Regular Your liquids should be the consistency of: Regular/Thin Discharge Activity: Return to Normal Activity, No Restrictions Call your doctor if you observe: Fever of 101 or Higher, Shortness of breath, Dizziness, Fainting spells, Swelling in the ankles, Chest pain, Increased palpitations (irregular heartbeat) Allergies/Adverse Reactions: Allergies lisinopril Allergy (Verified 08/31/18 16:18) Angioedema Medications to take at Discharge Amlodipine [Norvasc] 5 mg PO DAILY 11/19/13 Docusate Sodium [Colace] 100 mg PO DAILY 11/19/13 Fenofibrate [Tricor] 145 mg PO DAILY 11/19/13 levothyroxine 75 mcg tablet 75 mcg PO DAILY 04/08/18 sildenafil 100 mg tablet 100 mg PO ONCE PRN 04/08/18 Apixaban [Eliquis] 5 mg PO BID 08/31/18 Calcipotriene [Dovonex] 60 gm TP BID 08/31/18 Calcipotriene/Betamethasone [Taclonex Ointment] 100 gm TP DAILY 08/31/18 Furosemide [Lasix] 20 mg PO DAILY 08/31/18 Metoprolol Tartrate 25 mg PO BID 08/31/18 Amoxicillin/Potassium Clav [Augmentin 875-125 Tablet] 1 each PO BID #14 tablet 09/01/18 The following prescriptions were given: Amoxicillin/Potassium Clav [Augmentin 875-125 Tablet] 1 each PO BID #14 tablet Primary Care Physician: Cara Valentine MD [Primary Care Provider] - Please follow up with your Primary Care Physician in: 3-5 days Test Results: Test results from this visit will be discussed in further detail at your follow- up appointment, if applicable. Please Follow Up With: Dentist,Your When: 1-2 days
--- NOTE | 2018-09-01 08:34 | DS.PCM_ITS ---
Discharge Date and Diagnosis - Problem List Patient Problems: Active and Suspected Problems (Last Reviewed 08/31/18 @ 18:52 by Bridger Hobbs DO) Sinusitis (Acute) Date of Admission: 08/31/18 Date of Discharge: 09/01/18 - Primary Discharge Diagnosis Active and Suspected Problems (Last Reviewed 08/31/18 @ 18:52 by Bridger Hobbs DO) Sinusitis (Acute) - Secondary Discharge Diagnosis Chronic Problems (Last Reviewed 08/31/18 @ 18:52 by Bridger Hobbs DO) Essential (primary) hypertension (Chronic) Paroxysmal atrial flutter (Chronic) WHITLEY cardioversion October 2017; History of bladder surgery (Chronic) several for bladder cancer History of cardioversion (Chronic) October 2017 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 This is having pain and the right side. Went to an urgent care today and was diagnosed with infected tooth and started on penicillin. Patient took 1 dose but started having fevers and then came to the emergency room. Patient had fevers here and concern was for facial cellulitis and for admission from the ER. Patient does state that this began suddenly and is never had anything like this before. Patient does have a dental bridge on his left upper teeth but no recent manipulation of his teeth on the right. Patient does state that he has not seen a dentist in a year and a half. States that there has not noticed any new pain with his teeth on the right side. He does state that he does have to occasionally flush out the gap between his bridge in his gums every so often on the left side. Hospital Course 1. 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 He had had several days of left facial pain and swelling and went to his doctor who gave him a dose of amoxicillin and was told that if he had a fever he should go to the ER. He did develop a fever on the day of admission and presented to the ER. Today on the day of discharge he is feeling much better says that his pain is less significant and his swelling even seems a little bit better. He was receiving Rocephin IV and will be discharged on Augmentin twice daily for 7 days. I do recommend that he follow-up with his primary care physician in 3-5 days as well as his dentist, in case he needs facial x-rays. 2. His other medical diagnoses were evaluated and his home medications were continued where appropriate Patient Problems: Active and Suspected Problems (Last Reviewed 08/31/18 @ 18:52 by Bridger Hobbs DO) Sinusitis (Acute) - Physical Exam General: Alert, Oriented x3, Cooperative, No apparent distress HEENT: Atraumatic, PERRLA, EOMI, Normocephalic, - - Left facial swelling with minimal pain to palpation Oral: Moist Mucosa Neck: Supple, No JVD, Trachea Midline Lungs: Clear to auscultation, Normal air movement, No rhonchi, No wheeze, No rales Cardiovascular: Regular rate, Regular Rhythm, Normal S1, Normal S2, No murmurs Abdomen: Soft, Non Tender, Non-Distended, No Hepato-splenomegaly Extremities: No edema, Capillary Refill Less than 3 Seconds Skin: No rashes, No breakdown Neurological: Neuro grossly intact, Sensory exam intact to light touch and pain Psych/Mental Status: Normal Affect, Appropriate Vital Signs Temp Pulse Resp BP Pulse Ox 97.6 F L 67 16 123/81 H 94 09/01/18 07:49 09/01/18 07:54 09/01/18 07:49 09/01/18 07:49 09/01/18 07:49 Oxygen Delivery Method Room Air Weight: 265 lb 3.599 oz Body Mass Index (BMI) 35.9 Intake and Output for Last 24 Hours 08/30/18 08/31/18 09/02/18 23:59 23:59 00:59 Intake Total 440 / 440 Output Total 550 / 550 Balance -110 / -110 Laboratory Tests Past 24 Hrs 08/31/18 08/31/18 09/01/18 17:25 17:25 06:20 WBC 13.4 H 12.2 H RBC 5.09 4.45 L Hgb 15.7 13.5 Hct 47.1 41.8 MCV 92.5 93.9 MCH 30.8 30.3 MCHC 33.3 32.3 RDW 14.7 H 14.9 H RDW Differential 49.9 H 50.1 H Plt Count 256 237 MPV 10.5 10.6 Immature Gran % (Auto) 0.100 0.200 Neut % (Auto) 75.8 H 76.2 H Lymph % (Auto) 12.9 L 11.5 L [place] % (Auto) 9.9 10.3 H Eos % (Auto) 1.1 1.6 Baso % (Auto) 0.2 0.2 Absolute Neuts (auto) 10.2 H 9.3 H Absolute Lymphs (auto) 1.73 1.41 Total Counted Not Reportable Not Reportable Sodium 139 Potassium 3.8 Chloride 103 Carbon Dioxide 27.0 Anion Gap 9 BUN 18 Creatinine 1.16 Estim Creat Clear Calc 69.68 Est GFR (MDRD) Af Amer 81 Est GFR (MDRD) Non-Af 67 BUN/Creatinine Ratio 15.5 Glucose 148 H Calcium 9.2 09/01/18 06:20 WBC RBC Hgb Hct MCV MCH MCHC RDW RDW Differential Plt Count MPV Immature Gran % (Auto) Neut % (Auto) Lymph % (Auto) [place] % (Auto) Eos % (Auto) Baso % (Auto) Absolute Neuts (auto) Absolute Lymphs (auto) Total Counted Sodium 137 Potassium 3.9 Chloride 106 Carbon Dioxide 24.0 Anion Gap 7 BUN 15 Creatinine 1.01 Estim Creat Clear Calc 80.03 Est GFR (MDRD) Af Amer 95 Est GFR (MDRD) Non-Af 79 BUN/Creatinine Ratio 14.9 Glucose 118 H Calcium 8.3 L Discharge Activity: Return to Normal Activity, No Restrictions Call your doctor if you observe: Fever of 101 or Higher, Shortness of breath, Dizziness, Fainting spells, Swelling in the ankles, Chest pain, Increased palpitations (irregular heartbeat) Home Medications: Medications to take at Discharge Amlodipine [Norvasc] 5 mg PO DAILY 11/19/13 Docusate Sodium [Colace] 100 mg PO DAILY 11/19/13 Fenofibrate [Tricor] 145 mg PO DAILY 11/19/13 levothyroxine 75 mcg tablet 75 mcg PO DAILY 04/08/18 sildenafil 100 mg tablet 100 mg PO ONCE PRN 04/08/18 Apixaban [Eliquis] 5 mg PO BID 08/31/18 Calcipotriene [Dovonex] 60 gm TP BID 08/31/18 Calcipotriene/Betamethasone [Taclonex Ointment] 100 gm TP DAILY 08/31/18 Furosemide [Lasix] 20 mg PO DAILY 08/31/18 Metoprolol Tartrate 25 mg PO BID 08/31/18 Amoxicillin/Potassium Clav [Augmentin 875-125 Tablet] 1 each PO BID #14 tablet 09/01/18 Following Prescrptions Were Given to Patient: Amoxicillin/Potassium Clav [Augmentin 875-125 Tablet] 1 each PO BID #14 tablet Primary Care Physician: Cara Valentine MD [Primary Care Provider] - Please follow up with your Primary Care Physician in: 3-5 days Please Follow Up With: Dentist,Your When: 1-2 days Disposition: Home Minutes spent on discharge:: 35 Patient Condition:: Stable Medical Necessity - Tobacco Use Smoking Status: Former smoker Meaningful Use Info Meaningful Use Diagnoses (Choose all that apply): None applicable Code Visit Inpatient E&M: 90451 Disch Hosp
== END 2018-09-01 09:15 | disposition home or self-care (01) ==
LOC: ED 17:57 → MS2 18:39
PROVIDERS: Emergency Provider Emergency Medicine; Family Provider Family Medicine; PCP Family Medicine; Visit Provider Family Medicine
DX: J01.00 Acute maxillary sinusitis, unspecified (principal); K04.7 Periapical abscess without sinus; C64.9 Malignant neoplasm of unspecified kidney, except renal pelvis; Z23 Encounter for immunization; Z90.5 Acquired absence of kidney; E03.9 Hypothyroidism, unspecified; E78.5 Hyperlipidemia, unspecified; L40.9 Psoriasis, unspecified; Z85.51 Personal history of malignant neoplasm of bladder; I48.92 Unspecified atrial flutter; Z79.899 Other long term (current) drug therapy; Z70.1 Counseling related to patient's sexual behavior and orientation; Z87.891 Personal history of nicotine dependence; Z95.2 Presence of prosthetic heart valve
CPT/HCPCS: 36415; 80048; 85025; 96361; 96365; 96367; 96375; 99218; 99282; G0008; J7040; 90686; A4216; G0378; J2405

== ENCOUNTER → 2018-09-02 14:17 | Outpatient (CLI) | payer MEDICARE, BC, SELFPAY ==
[2018-08-31 19:23] VITALS: BMI 35.9
[2018-09-02 15:45] LABS: Cholesterol 179 mg/dL (200); High Density Lipoprotein 32 mg/dL; PSA,Total - Annual Screen 3.11 ng/mL (0.00-4.00); Triglycerides 289 mg/dL; Very Low Density Lipoprotein 58 mg/dL (5-40)
== END ==
PROVIDERS: Family Provider Family Medicine; PCP Family Medicine; Visit Provider Family Medicine
DX: C64.9 Malignant neoplasm of unspecified kidney, except renal pelvis (principal); I10 Essential (primary) hypertension
CPT/HCPCS: 36415; 80061; 84153; G0103

== ENCOUNTER 2020-04-15 09:37 | Inpatient (IN) | payer MEDICARE, BC, SELFPAY ==
[2019-09-23 10:24] VITALS: BMI 34.8
[2020-04-15] VITALS (31 sets, daily range): BP systolic 80–145; BP diastolic 54–84; PULSE 55–143; RESP 12–25; TEMP 36.4–37; O2SAT 92–98; BMI 32.3; BMI 32.0
--- NOTE | 2020-04-15 09:48 | EKG12_ITS ---
Test Reason : HTN Blood Pressure : / mmHG Vent. Rate : 137 BPM Atrial Rate : 286 BPM P-R Int : 000 ms QRS Dur : 086 ms QT Int : 292 ms P-R-T Axes : 256 -04 035 degrees QTc Int : 440 ms Atrial flutter with variable A-V block Poor R wave progression Abnormal ECG Confirmed by ATA SON, FRANCK ([id number]), editorial writer CASSIE MARTINEZ ([id number]) on 04/19/2020 12:37:24 PM Referred By: GISEL/JUAN CARLOS Confirmed By:FRANCK BERUMEN MD
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
[2020-04-15] MEDS: dilTIAZem 25 MG/5 ML Vial 20 MG IV BOLUS (10:00)
[2020-04-15 10:01] LABS: Absolute Lymphocyte Count 1.74 X10^3/uL (0.83-4.51); Absolute Neutrophil Count 7.8 X10^3/uL (2.0-7.7); Basophil# 0.05 X10^3/uL; Basophil% 0.5 % (0-1); Eosinophil# 0.19 X10^3/uL; Eosinophils% 1.8 % (0-5); Hematocrit 49.7 % (40-54); Hemoglobin 16.1 g/dL (13.0-16.5); Lymphocyte # 1.74 X10^3/ul (4.0); Lymphocyte % 16.3 % (19-41); Mean Corp Hgb Conc 32.4 g/dL (32-36); Mean Corpuscular Hgb 33.3 pg (27.0-32.0); Mean Corpuscular Volume 102.9 fL (80-94); Mean Platelet Vol. 10.9 fl (6.2-12.0); Monocyte# 0.78 X10^3/uL; Monocyte% 7.3 % (0-10); NRBC Flagged by Analyzer 0 % (0-5); Neutrophil # 7.83 X10^3/uL (2.7-7.7); Neutrophil % 73.5 % (47-70); Platelet Count 276 K/mm3 (150-450); RBC Distribution Width CV 14.5 % (11.6-14.6); RBC Distribution Width SD 54.7 fl (35.1-43.9); Red Blood Count 4.83 M/mm3 (4.6-6.2); White Blood Count 10.7 K/mm3 (4.4-11.0)
[2020-04-15] MEDS: 0.9% Normal Saline 1,000 ML 999 ML IV (10:01)
[2020-04-15 10:05] LABS: International Normalized Ratio 1.3; Prothrombin Time (Protime)PT. 15.9 SECONDS (11.7-14.9)
--- NOTE | 2020-04-15 10:10 | RAD_ITS ---
STUDY: X-RAY CHEST REASON FOR EXAM: Male, 69 years old. AFIB, FATIGUE, DIZZINESS, SOB TECHNIQUE: Single AP portable view of the chest. COMPARISON: Comparison is made with prior study dated 11/05/2018. FINDINGS: Stable mild elevation of the right hemidiaphragm. Stable pleural parenchymal changes at the lung bases. There is no demonstrated pleural abnormality. Normal size heart. Normal mediastinum and kaya. Normal visualized pulmonary arteries. There is atherosclerotic calcification of the aortic arch with tortuosity. Normal visualized thoracic spine. Normal visualized ribs, clavicles, and shoulders. There is no demonstrated abnormality of the visualized soft tissue structures of the upper abdomen. RAD/Chest 1 View (Portable) IMPRESSION: Stable mild pleural parenchymal changes at both lung bases. Electronically Signed: Avel Samuels, at 10:47 EDT , Service support ,
[2020-04-15 10:33] LABS: Anion Gap 7 (5-15); BUN 21 mg/dL (7-18); Calcium,Total 9.8 mg/dL (8.5-10.1); Chloride 109 mmol/L (98-107); Creatinine, Serum 1.31 mg/dL (0.70-1.30); EST Glomerular Filtration Rate 58 mL/min (>60); Est Glom Filt Rate - Afr Amer 70 mL/min (>60); Estimated Creatinine Clearance 61.84 ml/min; Glucose 232 mg/dL (74-106); Sodium Level 141 mmol/L (136-145)
--- NOTE | 2020-04-15 11:00 | EKG12_ITS ---
Test Reason : Blood Pressure : / mmHG Vent. Rate : 100 BPM Atrial Rate : 300 BPM P-R Int : 000 ms QRS Dur : 098 ms QT Int : 362 ms P-R-T Axes : 269 010 056 degrees QTc Int : 466 ms Atrial flutter with variable A-V block Abnormal ECG Confirmed by ATA SON, FRANCK ([id number]), school photograph editor CASSIE MARTINEZ ([id number]) on 04/19/2020 1:06:07 PM Referred By: CAPO Confirmed By:FRANCK BERUMEN MD
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
--- NOTE | 2020-04-15 12:10 | NURSING ---
[place] afib with carlos eduardo calhoun
--- NOTE | 2020-04-15 13:11 | ECHOCS_ITS ---
Reason For Study: ATRIAL FIB-FLUTTER Procedure This was a 2D Doppler, Color Flow transthoracic echocardiogram. The study was technically difficult. Exam performed portable in patient room. Left Ventricle Normal LV size. The estimated ejection fraction is 65 %. Unable to assess diastolic dysfunction. No regional wall motion abnormalities noted. Right Ventricle Normal RV size. Normal systolic function. Atria Normal left atrium. Normal right atrium. No doppler evidence for ASD. Mitral Valve There is moderate mitral annular calcification. There is no mitral valve stenosis. No mitral valve insufficiency. Tricuspid Valve There is no tricuspid stenosis. No tricuspid valve insufficiency. Unable to estimate RV systolic pressure due to inadequate jet, pulmonary artery pressure probably normal. Aortic Valve Trisinus/trileaflet aortic valve. There is no aortic stenosis. No aortic valve insufficiency. Pulmonic Valve There is no pulmonic valvular stenosis. No pulmonic valve insufficiency. Great Vessels Normal aortic root. Pericardium/Pleural No pericardial effusion. Medication Diluted definity 2.5ml given slow IV push to enhance endocardial definition. MMode/2D Measurements & Calculations LVIDd: 3.9 cm IVSd: 0.93 cm Ao root diam: 3.5 cm LVIDs: 2.5 cm LVPWd: 0.98 cm RVDd: 3.0 cm FS: 35.8 % LAV(MOD-bp): 46.2 ml LVAd ap4: 21.7 cm2 SV(MOD-sp4): 31.4 ml LAV(MOD-bp) Indexed: 19.8 ml/m2 EDV(MOD-sp4): 52.1 ml LAV(MOD-sp2): 41.6 ml EDV(sp4-el): 55.8 ml LAV(MOD-sp4): 53.0 ml LVAs ap4: 12.1 cm2 ESV(MOD-sp4): 20.7 ml ESV(sp4-el): 21.3 ml EF(MOD-sp4): 60.3 % EF(sp4-el): 61.8 % SV(sp4-el): 34.5 ml LA A4 area: 18.5 cm2 LA dimension(2D): 3.9 cm RA A4 area: 13.8 cm2 Doppler Measurements & Calculations MV E max marck: 48.7 cm/sec Med Peak E' Marck: 8.9 cm/sec Ao V2 max: 94.2 cm/sec MV A max marck: 84.3 cm/sec E/E' med: 5.5 Ao max P.6 mmHg MV E/A: 0.58 LV V1 max: 78.9 cm/sec PA V2 max: 82.2 cm/sec PI end-d marck: 158.6 cm/sec LV V1 max P.5 mmHg TR max marck: 225.2 cm/sec TR max P.3 mmHg Interpretation Summary The estimated ejection fraction is 65 %. Unable to assess diastolic dysfunction. The study was technically difficult. Contrast injection was performed. Ordering Physician: Brandon Castro Referring Physician: JOANNA SINGH Performed By: Eva Herman RDCS
[2020-04-15] MEDS: dilTIAZem 60 MG Tablet PO (14:02)
[2020-04-15 14:04] LABS: Magnesium 2.1 mg/dL (1.6-2.6)
[2020-04-15 14:16] LABS: Thyroid Stim Hormone (TSH) 1.05 uIU/mL (0.358-3.74)
--- NOTE | 2020-04-15 14:23 | EKG12_ITS ---
Test Reason : REPEAT Blood Pressure : / mmHG Vent. Rate : 076 BPM Atrial Rate : 294 BPM P-R Int : 000 ms QRS Dur : 108 ms QT Int : 384 ms P-R-T Axes : 264 -14 038 degrees QTc Int : 432 ms Atrial flutter with variable A-V block Abnormal ECG Confirmed by ATA SON, FRANCK ([id number]), photograph editor CASSIE MARTINEZ ([id number]) on 04/19/2020 12:37:40 PM Referred By: JUAN CARLOS Confirmed By:FRANCK BERUMEN MD
[2020-04-15] MEDS: 0.9% Saline Lock 10 ML Syringe IV (16:48)
[2020-04-15] MEDS: APIXABAN 5 MG TABLET PO (21:20)
[2020-04-15] MEDS: Tamsulosin HCl 0.4 MG Capsule PO (21:20)
[2020-04-15] MEDS: Metoprolol Tartrate 25 MG Tablet PO (21:20)
[2020-04-16] VITALS (23 sets, daily range): BP systolic 81–120; BP diastolic 46–76; PULSE 53–107; RESP 12–21; TEMP 36.2–37; O2SAT 93–97
[2020-04-16] MEDS: Levothyroxine 150 MCG Tablet PO (05:34)
--- NOTE | 2020-04-16 06:00 | EKG12_ITS ---
Test Reason : ADMISSION Blood Pressure : / mmHG Vent. Rate : 120 BPM Atrial Rate : 288 BPM P-R Int : 000 ms QRS Dur : 112 ms QT Int : 326 ms P-R-T Axes : 242 007 006 degrees QTc Int : 460 ms Atrial flutter with variable A-V block Abnormal ECG Confirmed by ATA SON, FRANCK ([id number]), electronic news gathering editor CASSIE MARTINEZ ([id number]) on 04/19/2020 1:12:49 PM Referred By: YADIRA Confirmed By:FRANCK BERUMEN MD
[2020-04-16 06:54] LABS: Absolute Lymphocyte Count 2.42 X10^3/uL (0.83-4.51); Absolute Neutrophil Count 7.5 X10^3/uL (2.0-7.7); Basophil# 0.05 X10^3/uL; Basophil% 0.4 % (0-1); Eosinophil# 0.27 X10^3/uL; Eosinophils% 2.4 % (0-5); Hematocrit 44.5 % (40-54); Hemoglobin 14.5 g/dL (13.0-16.5); Lymphocyte # 2.42 X10^3/ul (4.0); Lymphocyte % 21.4 % (19-41); Mean Corp Hgb Conc 32.6 g/dL (32-36); Mean Corpuscular Hgb 33.8 pg (27.0-32.0); Mean Corpuscular Volume 103.7 fL (80-94); Mean Platelet Vol. 10.8 fl (6.2-12.0); Monocyte# 1.01 X10^3/uL; Monocyte% 8.9 % (0-10); NRBC Flagged by Analyzer 0 % (0-5); Neutrophil # 7.49 X10^3/uL (2.7-7.7); Neutrophil % 66.4 % (47-70); Platelet Count 239 K/mm3 (150-450); RBC Distribution Width CV 14.5 % (11.6-14.6); RBC Distribution Width SD 56.3 fl (35.1-43.9); Red Blood Count 4.29 M/mm3 (4.6-6.2); White Blood Count 11.3 K/mm3 (4.4-11.0)
[2020-04-16 07:13] LABS: Anion Gap 7 (5-15); BUN 21 mg/dL (7-18); BUN/Creat Ratio 19.6 RATIO (10-20); Calcium,Total 8.9 mg/dL (8.5-10.1); Chloride 110 mmol/L (98-107); Creatinine, Serum 1.07 mg/dL (0.70-1.30); EST Glomerular Filtration Rate 73 mL/min (>60); Est Glom Filt Rate - Afr Amer 89 mL/min (>60); Estimated Creatinine Clearance 75.71 ml/min; Glucose 110 mg/dL (74-106); Potassium 4.1 mmol/L (3.5-5.1); Sodium Level 140 mmol/L (136-145)
[2020-04-16] MEDS: Metoprolol Tartrate 25 MG Tablet PO ×2 (08:16→13:23)
[2020-04-16] MEDS: APIXABAN 5 MG TABLET PO ×2 (08:16→22:03)
[2020-04-16] MEDS: amLODIPine 10 MG Tablet PO (08:16)
[2020-04-16] MEDS: Fenofibrate 145 MG Tablet PO (08:17)
[2020-04-16] MEDS: Furosemide 20 MG Tablet PO (08:17)
--- NOTE | 2020-04-16 12:09 | PN_ITS ---
<[employer] - Last Filed: 04/16/20 12:19> Patient Problems: Active and Suspected Problems (Last Reviewed 04/15/20 @ 12:[address] Brandon cote MD) Atrial flutter with rapid ventricular response (Acute) Subjective: Patient seen and examined. Remains in atrial fibrillation/atrial flutter. Denies shortness of breath, palpitations, chest pain. - Physical Exam Vitals/I&O's: Vital Signs Temp Pulse Resp BP Pulse Ox 98.4 F 81 16 106/64 94 04/16/20 11:40 04/16/20 11:40 04/16/20 11:40 04/16/20 11:40 04/16/20 11:43 Oxygen Flow Rate (L/min) 2 Oxygen Delivery Method Room Air Weight: 242 lb 8 oz Body Mass Index (BMI) 32.0 Intake and Output for Last 24 Hours 04/14/20 04/15/20 04/16/20 23:59 23:59 23:59 Intake Total 1324.00 / 1831.50 614.58 / 614.58 Balance 1324.00 / 1831.50 614.58 / 614.58 General: Alert, Oriented x3, Cooperative HEENT: Atraumatic, PERRLA, EOMI, Normocephalic Neck: Supple, No JVD, Negative Carotid Bruits Lungs: Clear to auscultation, Normal air movement Cardiovascular: - - Atrial fibrillation, tachycardic Abdomen: Bowel Sounds Present, Soft, Non Tender, Non-Distended Extremities: No clubbing, No cyanosis, No edema, Capillary Refill Less than 3 Seconds Skin: No rashes, No breakdown Musculoskeletal: No Tenderness to Palpation of Joints or Extremities Neurological: Cranial nerves II-XII grossly intact, Neuro grossly intact Psych/Mental Status: Normal Affect, Appropriate Laboratory Results 04/15/20 13:30: TSH 1.05 04/15/20 13:30: Magnesium 2.1 04/15/20 13:30: Troponin I < 0.015 04/15/20 15:47: Troponin I < 0.015 04/16/20 06:03: WBC 11.3 H, RBC 4.29 L, Hgb 14.5, Hct 44.5, MCV 103.7 H, MCH 33.8 H, MCHC 32.6, RDW Std Deviation 56.3 H, RDW Coeff of Jose 14.5, Plt Count 239, MPV 10.8, Immature Gran % (Auto) 0.500, Neut % (Auto) 66.4, Lymph % (Auto) 21.4, [place] % (Auto) 8.9, Eos % (Auto) 2.4, Baso % (Auto) 0.4, Absolute Neuts (auto) 7.5, Absolute Lymphs (auto) 2.42, Nucleated RBC % 0 04/16/20 06:03: Sodium 140, Potassium 4.1, Chloride 110 H, Carbon Dioxide 23.0, Anion Gap 7, BUN 21 H, Creatinine 1.07, Estim Creat Clear Calc 75.71, Est GFR (MDRD) Af Amer 89, Est GFR (MDRD) Non-Af 73, BUN/Creatinine Ratio 19.6, Glucose 110 H, Calcium 8.9, Magnesium 2.0 Current Medications Acetaminophen (Acetaminophen 325 Mg Tablet) 650 mg PO Q6H PRN PRN PRN Reason: Pain Score 1-10/Temp > 100.7 F Al Hydroxide/Mg Hydroxide (Mag Hydrox/Al Hydrox/Simeth 30 Ml Udc) 30 ml PO Q6H PRN PRN PRN Reason: Gastric Burning Albuterol Sulfate (Albuterol 2.5 Mg/3 Ml Vial.Neb.) 2.5 mg INHALATION Q2H PRN PRN PRN Reason: SOB/Wheezing Amlodipine Besylate (Amlodipine 10 Mg Tablet) 10 mg PO DAILY [facility] Last Admin: 04/16/20 08:16 Dose: 10 mg Documented by: Apixaban (Apixaban 5 Mg Tablet) 5 mg PO BID [facility] Last Admin: 04/16/20 08:16 Dose: 5 mg Documented by: Fenofibrate (Fenofibrate 145 Mg Tablet) 145 mg PO DAILYCM [facility] Last Admin: 04/16/20 08:17 Dose: 145 mg Documented by: Furosemide (Furosemide 20 Mg Tablet) 20 mg PO DAILY [facility] Last Admin: 04/16/20 08:17 Dose: 20 mg Documented by: Guaifenesin (Guaifenesin 10 Ml Udc (200mg/10ml)) 20 ml PO Q4H PRN PRN PRN Reason: COUGH Sodium Chloride () 250 mls @ 15 mls/hr IV .[id number] PRN PRN Reason: Saline Flush Sodium Chloride () 250 mls @ 15 mls/hr IV .[id number] PRN PRN Reason: Additional IVPB Infusion Levothyroxine Sodium (Levothyroxine 150 Mcg Tablet) 150 mcg PO DAILY@0600 [facility] Last Admin: 04/16/20 05:34 Dose: 150 mcg Documented by: Melatonin (Melatonin 3 Mg Tablet) 3 mg PO QHS PRN PRN PRN Reason: INSOMNIA Metoprolol Tartrate (Metoprolol Tartrate 25 Mg Tablet) 25 mg PO BID [facility] Last Admin: 04/16/20 08:16 Dose: 25 mg Documented by: Nitroglycerin (Nitroglycerin (Inpatient Use) 0.4 Mg Tab.Subl) 0.4 mg SUBLINGUAL Q5M PRN PRN Reason: CARDIAC/CHEST PAIN Ondansetron HCl (Ondansetron 4 Mg/2 Ml Vial) 4 mg IV Q8H PRN PRN PRN Reason: NAUSEA/VOMITING Oxycodone HCl (Oxycodone 5 Mg Tablet) 5 mg PO Q4H PRN PRN PRN Reason: Pain Score 4-5 Oxycodone HCl (Oxycodone 5 Mg Tablet) 10 mg PO Q4H PRN PRN PRN Reason: Pain Score 6-10 Senna/Docusate Sodium (Senna/Docusate Sodium 1 Tablet) 2 tablet PO BID PRN PRN PRN Reason: Constipation Sodium Chloride (0.9% Saline Lock 10 Ml Syringe) 10 - 40 ml IV UD PRN PRN Reason: SALINE FLUSH Last Admin: 04/15/20 16:48 Dose: 10 ml Documented by: Tamsulosin HCl (Tamsulosin Hcl 0.4 Mg Capsule) 0.4 mg PO QHS [facility] Last Admin: 04/15/20 21:20 Dose: 0.4 mg Documented by: Medical Necessity - Tobacco Use Smoking Status: Former smoker Assessment/Plan All Active Problems (Last Reviewed 04/15/20 @ 12:[address] Brandon Castro MD) Atrial flutter with rapid ventricular response (Acute) Abdominal distention (Resolved) Nausea vomiting and diarrhea (Resolved) Sinusitis (Resolved) 1. Atrial fibrillation/atrial flutter with RVR-history of WHITLEY cardioversion in October 2017 has not had recurrence until now. Cardiology consulted. On Eliquis. Patient initially placed on IV Cardizem however became bradycardic overnight and this was discontinued. Heart rate tachycardic again this morning. Will increase home metoprolol regimen to 50 mg twice daily. Echocardiogram demonstrates an EF of 65%. Further recommendations per cardiology. Patient follows with Dr. Cassidy. 2. History of renal cell carcinoma-on nivolumab. 3. Hypertension-stable, continue amlodipine, losartan, metoprolol. 4. Hyperlipidemia-on fenofibrate. 5. Hypothyroidism-continue Synthroid regimen. TSH normal. 6. Obesity-encouraged diet and lifestyle modifications. 7. BPH-continue Flomax. DVT prophylaxis-Eliquis This patient was seen by ENE Betancourt under the supervision of Dr. Castro. <Brandon Castro - Last Filed: 04/16/20 13:38> - Physical Exam Vitals/I&O's: Vital Signs Temp Pulse Resp BP Pulse Ox 98.4 F 96 16 106/64 94 04/16/20 11:40 04/16/20 13:23 04/16/20 11:40 04/16/20 11:40 04/16/20 11:43 Oxygen Flow Rate (L/min) 2 Oxygen Delivery Method Room Air Weight: 109.996 kg Body Mass Index (BMI) 32.0 Intake and Output for Last 24 Hours 04/14/20 04/15/20 04/16/20 23:59 23:59 23:59 Intake Total 1324.00 / 1831.50 614.58 / 614.58 Balance 1324.00 / 1831.50 614.58 / 614.58 Laboratory Results 04/15/20 13:30: TSH 1.05 04/15/20 13:30: Magnesium 2.1 04/15/20 13:30: Troponin I < 0.015 04/15/20 15:47: Troponin I < 0.015 04/16/20 06:03: WBC 11.3 H, RBC 4.29 L, Hgb 14.5, Hct 44.5, MCV 103.7 H, MCH 33.8 H, MCHC 32.6, RDW Std Deviation 56.3 H, RDW Coeff of Jose 14.5, Plt Count 239, MPV 10.8, Immature Gran % (Auto) 0.500, Neut % (Auto) 66.4, Lymph % (Auto) 21.4, [place] % (Auto) 8.9, Eos % (Auto) 2.4, Baso % (Auto) 0.4, Absolute Neuts (auto) 7.5, Absolute Lymphs (auto) 2.42, Nucleated RBC % 0 04/16/20 06:03: Sodium 140, Potassium 4.1, Chloride 110 H, Carbon Dioxide 23.0, Anion Gap 7, BUN 21 H, Creatinine 1.07, Estim Creat Clear Calc 75.71, Est GFR (MDRD) Af Amer 89, Est GFR (MDRD) Non-Af 73, BUN/Creatinine Ratio 19.6, Glucose 110 H, Calcium 8.9, Magnesium 2.0 Current Medications Acetaminophen (Acetaminophen 325 Mg Tablet) 650 mg PO Q6H PRN PRN PRN Reason: Pain Score 1-10/Temp > 100.7 F Al Hydroxide/Mg Hydroxide (Mag Hydrox/Al Hydrox/Simeth 30 Ml Udc) 30 ml PO Q6H PRN PRN PRN Reason: Gastric Burning Albuterol Sulfate (Albuterol 2.5 Mg/3 Ml Vial.Neb.) 2.5 mg INHALATION Q2H PRN PRN PRN Reason: SOB/Wheezing Amlodipine Besylate (Amlodipine 10 Mg Tablet) 10 mg PO DAILY [facility] Last Admin: 04/16/20 08:16 Dose: 10 mg Documented by: Apixaban (Apixaban 5 Mg Tablet) 5 mg PO BID [facility] Last Admin: 04/16/20 08:16 Dose: 5 mg Documented by: Diltiazem HCl (Diltiazem 30 Mg Tablet) 30 mg PO Q6 [facility] Fenofibrate (F[facility]ate 145 Mg Tablet) [facility] Last Admin: 04/16/20 08:17 Dose: 145 mg Documented by: Furosemide (Furosemide 20 Mg Tablet) 20 mg PO DAILY [facility] Last Admin: 04/16/20 08:17 Dose: 20 mg Documented by: Guaifenesin (Guaifenesin 10 Ml Udc (200mg/10ml)) 20 ml PO Q4H PRN PRN PRN Reason: COUGH Sodium Chloride () 250 mls @ 15 mls/hr IV .[id number] PRN PRN Reason: Saline Flush Sodium Chloride () 250 mls @ 15 mls/hr IV .[id number] PRN PRN Reason: Additional IVPB Infusion Levothyroxine Sodium (Levothyroxine 150 Mcg Tablet) 150 mcg PO DAILY@0600 [facility] Last Admin: 04/16/20 05:34 Dose: 150 mcg Documented by: Melatonin (Melatonin 3 Mg Tablet) 3 mg PO QHS PRN PRN PRN Reason: INSOMNIA Metoprolol Tartrate (Metoprolol Tartrate 50 Mg Tablet) 50 mg PO BID [facility] Nitroglycerin (Nitroglycerin (Inpatient Use) 0.4 Mg Tab.Subl) 0.4 mg SUBLINGUAL Q5M PRN PRN Reason: CARDIAC/CHEST PAIN Ondansetron HCl (Ondansetron 4 Mg/2 Ml Vial) 4 mg IV Q8H PRN PRN PRN Reason: NAUSEA/VOMITING Oxycodone HCl (Oxycodone 5 Mg Tablet) 5 mg PO Q4H PRN PRN PRN Reason: Pain Score 4-5 Oxycodone HCl (Oxycodone 5 Mg Tablet) 10 mg PO Q4H PRN PRN PRN Reason: Pain Score 6-10 Senna/Docusate Sodium (Senna/Docusate Sodium 1 Tablet) 2 tablet PO BID PRN PRN PRN Reason: Constipation Sodium Chloride (0.9% Saline Lock 10 Ml Syringe) 10 - 40 ml IV UD PRN PRN Reason: SALINE FLUSH Last Admin: 04/15/20 16:48 Dose: 10 ml Documented by: Tamsulosin HCl (Tamsulosin Hcl 0.4 Mg Capsule) 0.4 mg PO QHS [facility] Last Admin: 04/15/20 21:20 Dose: 0.4 mg Documented by: Assessment/Plan This patient was seen in conjunction with ENE Betancourt . I have independently interviewed and examined the patient and reviewed pertinent historical, laboratory, and other data. Please refer to ENE Betancourt note for details of this patient's presentation, findings, and recommendations. I have reviewed ENE Betancourt note and concur with documented findings. In brief, Patient is a 69-year-old gentleman presenting with palpitations and fatigue found to be in A. fib/flutter with rapid ventricular response patient admitted to a monitored bed. Initially started on oral Cardizem however in view of persistent A. fib with RVR oral Cardizem discontinued patient started on IV Cardizem titrated to keep heart rate less than 100. Patient Cardizem was discontinued during the night after patient became bradycardic. Consult was also placed to cardiology awaiting input Physical Examination: GENERAL: cooperative HEENT: Atraumatic; EYES; Anicteric, Normal Conjunctiva NECK; supple, normal thyroid, RESPIRATORY: Diminished to auscultation CARDIOVASCULAR: Irregularly irregular, tachycardic GI: soft, normoactive bowel sounds, : No Renal angle tenderness; EXTREMITIES: No edema, no clubbing, MUSCULOSKELETAL: no muscle waisting NEURO: Awake; no lateralizing signs. SKIN: No Rash PSYCH; Flat affect Assessment: 1. A. fib/flutter with rapid ventricular response. 2. 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 Hypertension 4. Hypothyroidism 5. Obesity with BMI of 32.3 6. DVT prophylaxis Recommendations: 1. I have discussed the results of my overview and impressions with the patient 2. Options for management were reviewed OBSV E&M: [id number] Subsequent observation care L3
--- NOTE | 2020-04-16 14:17 | CASEMGMT ---
This RN CM to room to complete CM assessment and pt is sleeping without distress at this time. SStaten RN CM
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
[2020-04-16] MEDS: dilTIAZem 30 MG Tablet PO (17:51)
[2020-04-16] MEDS: Tamsulosin HCl 0.4 MG Capsule PO (22:03)
[2020-04-16] MEDS: Metoprolol Tartrate 50 MG Tablet PO (22:03)
[2020-04-17] VITALS (10 sets, daily range): BP systolic 95–130; BP diastolic 48–68; PULSE 71–99; RESP 15–16; TEMP 36.4–36.7; O2SAT 94–97
[2020-04-17] MEDS: dilTIAZem 30 MG Tablet PO ×3 (00:23→11:23)
[2020-04-17] MEDS: Levothyroxine 150 MCG Tablet PO (07:06)
[2020-04-17] MEDS: Fenofibrate 145 MG Tablet PO (07:31)
[2020-04-17 07:42] LABS: Absolute Lymphocyte Count 1.82 X10^3/uL (0.83-4.51); Absolute Neutrophil Count 6.6 X10^3/uL (2.0-7.7); Basophil# 0.05 X10^3/uL; Basophil% 0.5 % (0-1); Eosinophil# 0.25 X10^3/uL; Eosinophils% 2.6 % (0-5); Hematocrit 46.9 % (40-54); Hemoglobin 15.1 g/dL (13.0-16.5); Lymphocyte # 1.82 X10^3/ul (4.0); Lymphocyte % 18.8 % (19-41); Mean Corp Hgb Conc 32.2 g/dL (32-36); Mean Corpuscular Hgb 33.9 pg (27.0-32.0); Mean Corpuscular Volume 105.2 fL (80-94); Mean Platelet Vol. 10.8 fl (6.2-12.0); Monocyte# 0.95 X10^3/uL; Monocyte% 9.8 % (0-10); NRBC Flagged by Analyzer 0 % (0-5); Neutrophil # 6.57 X10^3/uL (2.7-7.7); Neutrophil % 67.8 % (47-70); Platelet Count 264 K/mm3 (150-450); RBC Distribution Width CV 14.1 % (11.6-14.6); RBC Distribution Width SD 55.2 fl (35.1-43.9); Red Blood Count 4.46 M/mm3 (4.6-6.2); White Blood Count 9.7 K/mm3 (4.4-11.0)
[2020-04-17 07:57] LABS: Anion Gap 4 (5-15); BUN 18 mg/dL (7-18); BUN/Creat Ratio 18.4 RATIO (10-20); Calcium,Total 8.5 mg/dL (8.5-10.1); Chloride 109 mmol/L (98-107); Creatinine, Serum 0.98 mg/dL (0.70-1.30); EST Glomerular Filtration Rate 81 mL/min (>60); Est Glom Filt Rate - Afr Amer 99 mL/min (>60); Estimated Creatinine Clearance 82.66 ml/min; Glucose 115 mg/dL (74-106); Potassium 4.2 mmol/L (3.5-5.1); Sodium Level 140 mmol/L (136-145)
[2020-04-17] MEDS: amLODIPine 10 MG Tablet PO (09:10)
[2020-04-17] MEDS: Metoprolol Tartrate 50 MG Tablet PO (09:10)
[2020-04-17] MEDS: APIXABAN 5 MG TABLET PO (09:10)
[2020-04-17] MEDS: Furosemide 20 MG Tablet PO (09:10)
--- NOTE | 2020-04-17 11:51 | DCINST_ITS ---
- Discharge Diagnoses Current Active Problems: Current Active and Chronic Problems (Last Reviewed 04/15/20 @ 12:[address] Brandon Castro MD) Atrial flutter with rapid ventricular response (Acute) Paroxysmal atrial flutter (Chronic) WHITLEY cardioversion October 2017; Essential (primary) hypertension (Chronic) Dyslipidemia (Chronic) Renal cell carcinoma (Chronic) s/p nephrectomy Transitional cell carcinoma of bladder (Chronic) You will use the following diet at home:: Cardiac Discharge Activity: Return to Normal Activity Call your doctor if you observe: Shortness of breath, Dizziness, Fainting spells, Chest pain Additional Instructions: Notify cardiology if heart rate sustaining greater than 120 bpm at rest. Hold home amlodipine regimen if systolic blood pressure (top number) is less than 100. Allergies/Adverse Reactions: Allergies lisinopril Allergy (Verified 04/15/20 09:37) Angioedema Medications to take at Discharge Fenofibrate [Tricor] 145 mg PO DAILY 11/19/13 Apixaban [Eliquis] 5 mg PO BID 08/31/18 Calcipotriene [Dovonex] 60 gm TP BID PRN PRN 08/31/18 Calcipotriene/Betamethasone [Taclonex Ointment] 100 gm TP DAILY PRN PRN 08/31/18 amlodipine 10 mg tablet 10 mg PO DAILY tab 09/23/19 furosemide 20 mg tablet 20 mg PO DAILY #90 tab 09/23/19 levothyroxine 150 mcg tablet 150 mcg PO DAILY tab 09/23/19 tamsulosin 0.4 mg capsule 0.4 mg PO QHS 09/23/19 Ibuprofen/Diphenhydramine HCl [Advil Pm Liqui-Gels] 1 ea PO QHS 04/15/20 Ondansetron HCl [Zofran] 1 - 2 tab PO BID PRN PRN 04/15/20 Diltiazem CD [Cardizem CD] 120 mg PO DAILY #30 cap 04/17/20 Metoprolol Tartrate [Lopressor (beta lety)] 50 mg PO BID #60 tab 04/17/20 The following prescriptions were given: Diltiazem CD [Cardizem CD] 120 mg PO DAILY #30 cap Transmission Status: Pending to [id number] Metoprolol Tartrate [Lopressor (beta lety)] 50 mg PO BID #60 tab Transmission Status: Pending to [id number] Primary Care Physician: Cara Valentine MD [Primary Care Provider] - Please follow up with your Primary Care Physician in: 1 Week Test Results: Test results from this visit will be discussed in further detail at your follow- up appointment, if applicable. Please Follow Up With: Mamie Ayon, PA When: As scheduled, 04/20/2020 Proposed Discharge Date: 04/17/20
--- NOTE | 2020-04-17 12:38 | DS.PCM_ITS ---
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 Brandon Castro MD) Atrial flutter with rapid ventricular response (Acute) Date of Admission: 04/15/20 Date of Discharge: 04/17/20 - Primary Discharge Diagnosis Acute Problems: Active Problems (Last Reviewed 04/15/20 @ 12:[address] Brandon Castro MD) 1. Atrial fibrillation/atrial flutter with RVR 2. History of renal cell carcinoma 3. Hypertension 4. Hyperlipidemia 5. Hypothyroidism 6. Obesity 7. BPH - Secondary Discharge Diagnosis Chronic Problems: Chronic Problems (Last Reviewed 04/15/20 @ 12:[address] Brandon Castro MD) Paroxysmal atrial flutter (Chronic) WHITLEY cardioversion October 2017; Essential (primary) hypertension (Chronic) Dyslipidemia (Chronic) Renal cell carcinoma (Chronic) s/p nephrectomy Transitional cell carcinoma of bladder (Chronic) Hospital Course and Treatment Imaging Results: Diagnostic Data Chest X-Ray 04/15/20 10:10 IMPRESSION: Stable mild pleural parenchymal changes at both lung bases. Electronically Signed: Avel Arvind, at 10:47 EDT , Service support , Dr. Ross- Cardiology Operations: None Procedures: 2-D Echocardiogram Summary of Care Provided: The patient is a 69 year old M admitted 04/15/2020 due to palpitations. 1. Atrial fibrillation/atrial flutter with RVR-history of WHITLEY cardioversion in October 2017 has not had recurrence until now. Cardiology consulted. On Eliquis, continue. Echocardiogram demonstrates an EF of 65%. Home metoprolol regimen increased to 50 mg twice daily. Initiated on Cardizem CD 120 mg daily. Heart rate controlled at discharge, 70s-80s. Patient has follow-up with cardiology 04/20/2020. 2. History of renal cell carcinoma-on nivolumab. 3. Hypertension-stable, continue amlodipine, metoprolol. Blood pressure consistently 90-100 systolically during admission. Instructed patient to hold amlodipine for systolic blood pressure less than 100. Patient previously on as needed losartan? Instructed to hold at this time. May need reduction in amlodipine given increase in metoprolol and addition of Cardizem, follow blood pressure as outpatient. 4. Hyperlipidemia-on fenofibrate. 5. Hypothyroidism-continue Synthroid regimen. TSH normal. 6. Obesity-encouraged diet and lifestyle modifications. 7. BPH-continue Flomax. General: Alert, Oriented x3, Cooperative HEENT: Atraumatic, PERRLA, EOMI, Normocephalic Neck: Supple, No JVD, Negative Carotid Bruits Lungs: Clear to auscultation, Normal air movement Cardiovascular: - - Atrial flutter, rate controlled Abdomen: Bowel Sounds Present, Soft, Non Tender, Non-Distended Extremities: No clubbing, No cyanosis, No edema, Capillary Refill Less than 3 Seconds Skin: No rashes, No breakdown Musculoskeletal: No Tenderness to Palpation of Joints or Extremities Neurological: Cranial nerves II-XII grossly intact, Neuro grossly intact Psych/Mental Status: Normal Affect, Appropriate Patient seen and examined prior to discharge. Physical assessment as noted above. Patient is stable for discharge with follow up recommendations as noted above. This patient was seen by ENE Betancourt under the supervision of Dr. Zaldivar. Patient Problems: Active and Suspected Problems (Last Reviewed 04/15/20 @ 12:[address] Brandon Castro MD) Atrial flutter with rapid ventricular response (Acute) - Physical Exam Vitals/I&O's: Vital Signs Temp Pulse Resp BP Pulse Ox 97.6 F L 88 16 115/66 96 04/17/20 11:22 04/17/20 11:22 04/17/20 11:22 04/17/20 11:22 04/17/20 11:22 Oxygen Flow Rate (L/min) 2 Oxygen Delivery Method Room Air Weight: 242 lb 8 oz Body Mass Index (BMI) 32.0 Intake and Output for Last 24 Hours 04/15/20 04/16/20 04/17/20 23:59 23:59 23:59 Intake Total 1324.00 / 1831.50 1014.58 / 1164.58 650 / 650 Balance 1324.00 / 1831.50 1014.58 / 1164.58 650 / 650 Laboratory Results 04/17/20 07:20: WBC 9.7, RBC 4.46 L, Hgb 15.1, Hct 46.9, MCV 105.2 H, MCH 33.9 H , MCHC 32.2, RDW Std Deviation 55.2 H, RDW Coeff of Jose 14.1, Plt Count 264, MPV 10.8, Immature Gran % (Auto) 0.500, Neut % (Auto) 67.8, Lymph % (Auto) 18.8 L, Lawrence % (Auto) 9.8, Eos % (Auto) 2.6, Baso % (Auto) 0.5, Absolute Neuts (auto) 6.6, Absolute Lymphs (auto) 1.82, Nucleated RBC % 0 04/17/20 07:20: Sodium 140, Potassium 4.2, Chloride 109 H, Carbon Dioxide 27.0, Anion Gap 4 L, BUN 18, Creatinine 0.98, Estim Creat Clear Calc 82.66, Est GFR (MDRD) Af Amer 99, Est GFR (MDRD) Non-Af 81, BUN/Creatinine Ratio 18.4, Glucose 115 H, Calcium 8.5 Current Medications Acetaminophen (Acetaminophen 325 Mg Tablet) 650 mg PO Q6H PRN PRN PRN Reason: Pain Score 1-10/Temp > 100.7 F Al Hydroxide/Mg Hydroxide (Mag Hydrox/Al Hydrox/Simeth 30 Ml Udc) 30 ml PO Q6H PRN PRN PRN Reason: Gastric Burning Albuterol Sulfate (Albuterol 2.5 Mg/3 Ml Vial.Neb.) 2.5 mg INHALATION Q2H PRN PRN PRN Reason: SOB/Wheezing Amlodipine Besylate (Amlodipine 10 Mg Tablet) 10 mg PO DAILY [facility] Last Admin: 04/17/20 09:10 Dose: 10 mg Documented by: Apixaban (Apixaban 5 Mg Tablet) 5 mg PO BID [facility] Last Admin: 04/17/20 09:10 Dose: 5 mg Documented by: Diltiazem HCl (Diltiazem 30 Mg Tablet) 30 mg PO Q6 [facility] Last Admin: 04/17/20 11:23 Dose: 30 mg Documented by: Fenofibrate (Fenofibrate 145 Mg Tablet) 145 mg PO DAILYCM [facility] Last Admin: 04/17/20 07:31 Dose: 145 mg Documented by: Furosemide (Furosemide 20 Mg Tablet) 20 mg PO DAILY [facility] Last Admin: 04/17/20 09:10 Dose: 20 mg Documented by: Guaifenesin (Guaifenesin 10 Ml Udc (200mg/10ml)) 20 ml PO Q4H PRN PRN PRN Reason: COUGH Sodium Chloride () 250 mls @ 15 mls/hr IV .[id number] PRN PRN Reason: Saline Flush Sodium Chloride () 250 mls @ 15 mls/hr IV .[id number] PRN PRN Reason: Additional IVPB Infusion Levothyroxine Sodium (Levothyroxine 150 Mcg Tablet) 150 mcg PO DAILY@0600 [facility] Last Admin: 04/17/20 07:06 Dose: 150 mcg Documented by: Melatonin (Melatonin 3 Mg Tablet) 3 mg PO QHS PRN PRN PRN Reason: INSOMNIA Metoprolol Tartrate (Metoprolol Tartrate 50 Mg Tablet) 50 mg PO BID [facility] Last Admin: 04/17/20 09:10 Dose: 50 mg Documented by: Nitroglycerin (Nitroglycerin (Inpatient Use) 0.4 Mg Tab.Subl) 0.4 mg SUBLINGUAL Q5M PRN PRN Reason: CARDIAC/CHEST PAIN Ondansetron HCl (Ondansetron 4 Mg/2 Ml Vial) 4 mg IV Q8H PRN PRN PRN Reason: NAUSEA/VOMITING Oxycodone HCl (Oxycodone 5 Mg Tablet) 5 mg PO Q4H PRN PRN PRN Reason: Pain Score 4-5 Oxycodone HCl (Oxycodone 5 Mg Tablet) 10 mg PO Q4H PRN PRN PRN Reason: Pain Score 6-10 Senna/Docusate Sodium (Senna/Docusate Sodium 1 Tablet) 2 tablet PO BID PRN PRN PRN Reason: Constipation Sodium Chloride (0.9% Saline Lock 10 Ml Syringe) 10 - 40 ml IV UD PRN PRN Reason: SALINE FLUSH Last Admin: 04/15/20 16:48 Dose: 10 ml Documented by: Tamsulosin HCl (Tamsulosin Hcl 0.4 Mg Capsule) 0.4 mg PO QHS [facility] Last Admin: 04/16/20 22:03 Dose: 0.4 mg Documented by: Discharge Diet: Low fat/ Low Cholesterol Discharge Activity: Return to Normal Activity Call your doctor if you observe: Shortness of breath, Dizziness, Fainting spells, Chest pain Home Medications: Medications to take at Discharge Fenofibrate [Tricor] 145 mg PO DAILY 11/19/13 Apixaban [Eliquis] 5 mg PO BID 08/31/18 Calcipotriene [Dovonex] 60 gm TP BID PRN PRN 08/31/18 Calcipotriene/Betamethasone [Taclonex Ointment] 100 gm TP DAILY PRN PRN 08/31/18 amlodipine 10 mg tablet 10 mg PO DAILY tab 09/23/19 furosemide 20 mg tablet 20 mg PO DAILY #90 tab 09/23/19 levothyroxine 150 mcg tablet 150 mcg PO DAILY tab 09/23/19 tamsulosin 0.4 mg capsule 0.4 mg PO QHS 09/23/19 Ibuprofen/Diphenhydramine HCl [Advil Pm Liqui-Gels] 1 ea PO QHS 04/15/20 Ondansetron HCl [Zofran] 1 - 2 tab PO BID PRN PRN 04/15/20 Diltiazem CD [Cardizem CD] 120 mg PO DAILY #30 cap 04/17/20 Metoprolol Tartrate [Lopressor (beta lety)] 50 mg PO BID #60 tab 04/17/20 Following Prescriptions Were Given to Patient: Diltiazem CD [Cardizem CD] 120 mg PO DAILY #30 cap Transmission Status: Received by [facility]/pharmacy #[id number] Metoprolol Tartrate [Lopressor (beta lety)] 50 mg PO BID #60 tab Transmission Status: Received by [facility]/pharmacy #[id number] Primary Care Physician: Cara Valentine MD [Primary Care Provider] - Please follow up with your Primary Care Physician in: 1 Week Please Follow Up With: Mamie Ayon, PA When: As scheduled, 04/20/2020 Disposition: Home Minutes spent on discharge:: 35 Patient Condition:: Stable Medical Necessity - Tobacco Use Smoking Status: Former smoker Meaningful Use Info Meaningful Use Diagnoses (Choose all that apply): None applicable <Rachid Zaldivar - Last Filed: 04/17/20 16:07> Discharge Date and Diagnosis - Primary Discharge Diagnosis Acute Problems: Active Problems (Last Reviewed 04/15/20 @ 12:[address] Brandon Castro MD) Atrial flutter with rapid ventricular response (Acute) - Secondary Discharge Diagnosis Chronic Problems: Chronic Problems (Last Reviewed 04/15/20 @ 12:[address] Brandon Castro MD) Paroxysmal atrial flutter (Chronic) WHITLEY cardioversion October 2017; Essential (primary) hypertension (Chronic) Dyslipidemia (Chronic) Renal cell carcinoma (Chronic) s/p nephrectomy Transitional cell carcinoma of bladder (Chronic) Hospital Course and Treatment Summary of Care Provided: The patient is a 69 year old M [] - Physical Exam Vitals/I&O's: Vital Signs Temp Pulse Resp BP Pulse Ox 97.6 F L 88 16 115/66 96 04/17/20 11:22 04/17/20 11:22 04/17/20 11:22 04/17/20 11:22 04/17/20 11:22 Oxygen Flow Rate (L/min) 2 Oxygen Delivery Method Room Air Weight: 242 lb 8 oz Body Mass Index (BMI) 32.0 Intake and Output for Last 24 Hours 04/15/20 04/16/20 04/17/20 23:59 23:59 23:59 Intake Total 1324.00 / 1831.50 1014.58 / 1164.58 650 / 650 Balance 1324.00 / 1831.50 1014.58 / 1164.58 650 / 650 Laboratory Results 04/17/20 07:20: WBC 9.7, RBC 4.46 L, Hgb 15.1, Hct 46.9, MCV 105.2 H, MCH 33.9 H , MCHC 32.2, RDW Std Deviation 55.2 H, RDW Coeff of Jose 14.1, Plt Count 264, MPV 10.8, Immature Gran % (Auto) 0.500, Neut % (Auto) 67.8, Lymph % (Auto) 18.8 L, Lawrence % (Auto) 9.8, Eos % (Auto) 2.6, Baso % (Auto) 0.5, Absolute Neuts (auto) 6.6, Absolute Lymphs (auto) 1.82, Nucleated RBC % 0 04/17/20 07:20: Sodium 140, Potassium 4.2, Chloride 109 H, Carbon Dioxide 27.0, Anion Gap 4 L, BUN 18, Creatinine 0.98, Estim Creat Clear Calc 82.66, Est GFR (MDRD) Af Amer 99, Est GFR (MDRD) Non-Af 81, BUN/Creatinine Ratio 18.4, Glucose 115 H, Calcium 8.5 Addendum: Dr. Zaldivar I personally examined the patient and reviewed the chart. I agree with the above. 69-year-old male presenting to the hospital with palpitations. He does have a history of paroxysmal A. fib/flutter with previous cardioversion in 2018. He was found to be in RVR in the ER and was started on a Cardizem bolus and drip. Cardiology was consulted, and agreed with the increase in medication dosage as well as the addition of Eliquis. His heart rate did come under control today and he does have follow-up with cardiology on Sunday therefore cardiology felt that it was okay for him to be discharged home today. The plan for discharge was discussed and he expressed understanding of the risks and benefits of going home. Inpatient E&M: [id number] Disch Hosp
== END 2020-04-17 14:02 | disposition home or self-care (01) | DRG 309 ==
LOC: ED 12:07 → PCU 12:28
PROVIDERS: Admitting Provider Internal Medicine; Emergency Provider Emergency Medicine; PCP Family Medicine; Visit Provider Family Medicine
DX: I48.0 Paroxysmal atrial fibrillation (principal); C77.1 Secondary and unspecified malignant neoplasm of intrathoracic lymph nodes; I48.92 Unspecified atrial flutter; I10 Essential (primary) hypertension; E03.9 Hypothyroidism, unspecified; E78.5 Hyperlipidemia, unspecified; N40.0 Benign prostatic hyperplasia without lower urinary tract symptoms; E66.9 Obesity, unspecified; Z68.32 Body mass index [BMI] 32.0-32.9, adult; Z79.01 Long term (current) use of anticoagulants; Z79.890 Hormone replacement therapy; Z79.899 Other long term (current) drug therapy; Z85.528 Personal history of other malignant neoplasm of kidney; Z85.51 Personal history of malignant neoplasm of bladder; Z87.891 Personal history of nicotine dependence; Z90.5 Acquired absence of kidney
CPT/HCPCS: 36415; 71045; 80048; 83735; 84443; 84484; 85025; 85610; 93005; 93306; 99285; 99406; J7030; J7040; Q9957; A4216; C8929

== ENCOUNTER → 2020-04-27 11:00 | Day surgery (SDC) | payer MEDICARE, BC, SELFPAY ==
[2020-04-20 14:42] VITALS: BMI 32.8
[2020-04-26 13:50] VITALS: BMI 32.8
== END ==
PROVIDERS: PCP Family Medicine; Referring Provider Internal Medicine Cardiovascular Disease; Visit Provider Internal Medicine Cardiovascular Disease
DX: Z01.810 Encounter for preprocedural cardiovascular examination (principal)
CPT/HCPCS: 93005

== ENCOUNTER → 2020-09-13 11:10 | Outpatient (CLI) | payer MEDICARE, BC, SELFPAY ==
[2020-04-26 13:50] VITALS: BMI 32.8
[2020-09-13 12:47] LABS: Cholesterol 172 mg/dL (200); High Density Lipoprotein 33 mg/dL; PSA,Total - Annual Screen 7.89 ng/mL (0.00-4.00); T4 Total, Thyroxin 6.5 ug/dL (4.5-12.1); Thyroid Stim Hormone (TSH) 7.32 uIU/mL (0.358-3.74); Triglycerides 247 mg/dL; Very Low Density Lipoprotein 49 mg/dL (5-40)
== END ==
PROVIDERS: PCP Family Medicine; Visit Provider Family Medicine
DX: C67.9 Malignant neoplasm of bladder, unspecified (principal); E03.9 Hypothyroidism, unspecified; E78.5 Hyperlipidemia, unspecified
CPT/HCPCS: 36415; 80061; 84153; 84436; 84443; G0103

== ENCOUNTER → 2020-10-04 13:53 | Outpatient (CLI) | payer MEDICARE, BC, SELFPAY ==
[2020-04-26 13:50] VITALS: BMI 32.8
[2020-10-04 15:11] LABS: Hematocrit 47.7 % (40-54); Hemoglobin 15.5 g/dL (13.0-16.5); Mean Corp Hgb Conc 32.5 g/dL (32-36); Mean Corpuscular Hgb 33.1 pg (27.0-32.0); Mean Corpuscular Volume 101.9 fL (80-94); Mean Platelet Vol. 11.9 fl (6.2-12.0); Platelet Count 215 K/mm3 (150-450); RBC Distribution Width CV 14.7 % (11.6-14.6); RBC Distribution Width SD 55.6 fl (35.1-43.9); Red Blood Count 4.68 M/mm3 (4.6-6.2); White Blood Count 8.5 K/mm3 (4.4-11.0)
[2020-10-04 15:47] LABS: Anion Gap 5 (5-15); BUN 20 mg/dL (7-18); BUN/Creat Ratio 17.2 RATIO (10-20); Calcium,Total 9.4 mg/dL (8.5-10.1); Chloride 109 mmol/L (98-107); Creatinine, Serum 1.16 mg/dL (0.70-1.30); EST Glomerular Filtration Rate 67 mL/min (>60); Est Glom Filt Rate - Afr Amer 81 mL/min (>60); Glucose 80 mg/dL (74-106); Potassium 4.3 mmol/L (3.5-5.1); Sodium Level 139 mmol/L (136-145)
== END ==
PROVIDERS: PCP Family Medicine; Referring Provider Urology; Visit Provider Urology
DX: Z01.812 Encounter for preprocedural laboratory examination (principal)
CPT/HCPCS: 36415; 80048; 85027

== ENCOUNTER → 2020-10-15 | Outpatient (CLI) | payer MEDICARE, BC, SELFPAY ==
[2020-04-26 13:50] VITALS: BMI 32.8
== END | disposition home or self-care (01) ==
LOC: LABSPEC 14:04
PROVIDERS: PCP Family Medicine; Referring Provider Urology; Visit Provider Urology
DX: Z03.818 Encounter for observation for suspected exposure to other biological agents ruled out (principal)
CPT/HCPCS: 87635; C9803; U0002

== ENCOUNTER 2020-12-03 05:50 | Day surgery (SDC) | payer MEDICARE, BC, SELFPAY ==
[2020-11-16 09:09] VITALS: BMI 30.7
[2020-11-30 14:50] VITALS: BMI 30.7
[2020-12-03 06:28] VITALS: BP 113/64; PULSE 52; RESP 16; TEMP 36.7; O2SAT 96; BMI 29.5
[2020-12-03] MEDS: Lactated Ringers 1,000 ML 100 ML IV (06:37)
--- NOTE | 2020-12-03 07:33 | PCM.HP.STD ---
HPI - General HPI Narrative ASIA CAPPS, is a 70 M who presents for placement of gold markers he has a history of prostate cancer and also get a place a spacer gel matrix. [facility] Medical History (Updated 12/03/20 @ 07:[address] Dionicio Teresa MD) Abdominal distention Angioedema Arthritis Atrial flutter with rapid ventricular response Cancer Cardiology follow-up encounter (~04/20/20) Dyslipidemia Essential (primary) hypertension Fatty liver disease, nonalcoholic Former smoker Hemorrhoids High cholesterol History of stress test (~04/26/18) Hx of atrial flutter Hx of echocardiogram (~04/15/20) Hx of transesophageal echocardiography (WHITLEY) for monitoring (~11/06/17) Hypertension Hypothyroid Kidney disease Nausea vomiting and diarrhea Obesity Paroxysmal atrial flutter Psoriasis Renal cell carcinoma Shortness of breath Thyroid disease Transitional cell carcinoma of bladder Wears glasses Home Medications fenofibrate nanocrystallized 145 mg PO DAILY 11/19/13 [History Last Taken 04/15/20] apixaban 5 mg PO BID 08/31/18 [History Last Taken 04/27/20] calcipotriene 60 g TP BID PRN PRN 08/31/18 [History Last Taken 08/31/18] calcipotriene-betamethasone 100 g TP DAILY PRN PRN 08/31/18 [History Last Taken 08/31/18] amlodipine 10 mg tablet 10 mg PO DAILY tab 09/23/19 [History Last Taken 12/03/20 05:15] tamsulosin 0.4 mg capsule 0.4 mg PO QHS 09/23/19 [History Last Taken 04/14/20] ibuprofen-diphenhydramine HCl 1 ea PO QHS 04/15/20 [History Last Taken 04/14/20] ondansetron HCl 1 - 2 tab PO BID PRN PRN 04/15/20 [History Last Taken Unknown] losartan 100 mg tablet 100 mg PO PRN PRN 04/20/20 [History Last Taken Unknown] pantoprazole 20 mg tablet,delayed release 40 mg PO DAILY 04/20/20 [History Last Taken 12/03/20 05:15] diltiazem HCl 120 mg capsule,extended release 24 hr 120 mg PO DAILY #90 cap 06/04/20 [Rx Last Taken 12/03/20 05:15] furosemide 20 mg tablet 20 mg PO DAILY #90 tab 09/27/20 [Rx Last Taken Unknown] cabozantinib 40 mg tablet 40 mg PO DAILY 11/16/20 [History Last Taken 11/26/20] levothyroxine 150 mcg tablet 175 mcg PO DAILY tab 11/16/20 [History Last Taken Unknown] loperamide 2 mg capsule 2 mg PO Q6H PRN 11/16/20 [History Last Taken Unknown] diphenoxylate-atropine 1 tab PO PRN PRN 11/26/20 [History Last Taken Unknown] metoprolol tartrate 50 mg tablet 50 mg PO BID #180 tab 11/27/20 [Rx Last Taken 12/03/20 05:15] ciprofloxacin HCl [Cipro] 500 mg PO BID #14 tab 12/03/20 [Rx Last Taken Unknown] Allergy/AdvReac Type Severity Reaction Status Date / Time lisinopril Allergy Angioedema Verified 11/30/20 14:47 Family History Mother PAD (peripheral artery disease) CAD (coronary artery disease) Myocardial infarction, Onset Age: 84 S/P CABG x 4, Onset Age: 84 and valve replacement H/O heart valve replacement with bioprosthetic valve Father , Age 40 Cancer brain Surgical History (Updated 12/03/20 @ 07:[address] Dionicio Teresa MD) H/O total adrenalectomy History of bladder surgery History of cardioversion (11/07/17) History of exploratory laparotomy (~2012) History of kidney surgery History of open reduction and internal fixation (ORIF) procedure (~01/1986) History of tonsillectomy Hx of abdominal surgery Hx of prostate biopsy (~10/22/20) Hx of transurethral resection of prostate (~10/05/17) Social History household members: spouse housing: house Smoking Status: Former smoker Tobacco: How many years used: 12 alcohol intake: current alcohol intake frequency: a few times a week Alcohol type: beer and hard liquor caffeine: No Vital Signs Vital Signs Vital Signs: 12/03/20 06:28 Temperature 98.0 F Temperature Source Temporal Pulse Rate 52 L Respiratory Rate 16 Respiratory Pattern Normal Blood Pressure 113/64 Blood Pressure Mean 80 Blood Pressure Source Monitor Blood Pressure Position Semi-Fowlers Blood Pressure Location Left Arm Pulse Ox 96 Oxygen Delivery Method Room Air Weight Weight: 101.6 kg Body Mass Index (BMI) 29.5 Physical Exam Const alert and oriented x3 General Appearance: cooperative HEENT normocephalic, head/scalp atraumatic, EAC's normal and TM's normal bilaterally Eyes PERRL and EOMs intact bilaterally Pupil: sluggish Neck no lymphadenopathy, supple and no JVD General: trachea midline Lymph Lymphatic: no lymphadenopathy noted, lymphedema and lymphadenopathy Resp normal respiratory effort, normal air movement and clear to auscultation bilaterally Cardio regular rate, regular rhythm and peripheral pulses 2+ throughout GI soft to palpation, non-tender and non-distended Extremity normal capillary refill and no clubbing, cyanosis or edema General Extremity: no tenderness to palpation of joints or extremities Skin no rashes or lesions noted General Skin Exam: turgor normal Lesions: no lesions Rashes: no rashes Neuro CN's II-XII intact bilaterally Speech: speech normal Motor Exam: strength 5/5 throughout; Negative for general weakness Psych thought process normal, cooperative and affect normal Appearance: appropriate Assessment & Plan Assessment/Plan (1) Prostate cancer: PLAN: Plan to proceed with placement of gold markers and spacer gel.
[2020-12-03] MEDS: Cefazolin 2 GM in 0.9% Normal Saline 100 ML IV (07:36)
--- NOTE | 2020-12-03 07:36 | PCM.DC ---
Discharge Instructions Diet Discharge Diet: No restrictions Dressing / Incision Call your doctor if your incision/area has: Continuous Slow Oozing, Increased Pain/ Swelling, Increased Redness and Foul Smelling Discharge Call your doctor if you observe: Fever of 101 or Higher, Numbness or Tingling, Shortness of breath, Dizziness, Calf discomfort and Uncontrolled pain Follow Up Care Please Follow Up With: Dionicio Teresa MD Test Results: Test results from this visit will be discussed in further detail at your follow-up appointment, if applicable. Discharge Plan Admission Primary Reason for Your Visit: gold markers, and spacer gel Attending Provider: Dionicio Teresa Primary Care Provider: Cara Valentine Discharge Orders/Prescriptions Prescriptions: New ciprofloxacin HCl [Cipro] 500 mg tablet 500 mg PO BID Qty: 14 RF: 0 Continued amlodipine 10 mg tablet 10 mg PO DAILY RF: 0 tamsulosin 0.4 mg capsule 0.4 mg PO QHS RF: 0 levothyroxine 150 mcg tablet 175 mcg PO DAILY RF: 0 pantoprazole 20 mg tablet,delayed release (DR/EC) 40 mg PO DAILY RF: 0 losartan 100 mg tablet 100 mg PO PRN PRN (Reason: HIGH BP) RF: 0 Cabometyx 40 mg tablet 40 mg PO DAILY RF: 0 loperamide [Imodium A-D] 2 mg capsule 2 mg PO Q6H PRN (Reason: Diarrhea) RF: 0 fenofibrate nanocrystallized 145 MG tablet 145 mg PO DAILY RF: 0 calcipotriene 60 GM cream 60 g TP BID PRN PRN (Reason: Rash/Topical Irritation) RF: 0 calcipotriene-betamethasone 60 GM ointment 100 g TP DAILY PRN PRN (Reason: Rash/Topical Irritation) RF: 0 ondansetron HCl 4 MG tablet 1 - 2 tab PO BID PRN PRN (Reason: Nausea) RF: 0 ibuprofen-diphenhydramine HCl 1 EACH capsule 1 ea PO QHS RF: 0 diphenoxylate-atropine 2.5-0.025 mg tablet 1 tab PO PRN PRN (Reason: Diarrhea) RF: 0 diltiazem HCl 120 mg capsule,extended release 24hr 120 mg PO DAILY Qty: 90 RF: 3 furosemide 20 mg tablet 20 mg PO DAILY Qty: 90 RF: 3 metoprolol tartrate 50 mg tablet 50 mg PO BID Qty: 180 RF: 3 Held apixaban 5 MG tablet 5 mg PO BID RF: 0 Hold Instructions: Resume on 12/06/20. Referrals / Follow Up: Cara Valentine MD [Primary Care Provider] - Dionicio Teresa MD [STAFF PHYSICIAN] - Disposition Discharge Orders: Discharge Patient (Routine); Ordered 12/03/20 Ordered By: Dr. Dionicio Teresa
--- NOTE | 2020-12-03 07:52 | OP.PCM_ITS ---
Report of Operation Date of Procedure: 12/03/20 Pre-Operative Diagnosis: Prostate cancer Post-Operative Diagnosis: Same Surgery/Procedure Performed:: Transrectal ultrasound-guided via the peroneal placement of gold fiducial markers and placement of spacer gel matrix Description of Surgical Findings:: Patient was taken back to the operating room, after induction of anesthesia, he was placed in dorsolithotomy position. The patient had a bowel prep preoperatively. He was given IV antibiotics preoperatively. He underwent a timeout procedure. He was marked and the procedure was reviewed with the operating room staff. Once he was in dorsolithotomy position. The genitals and perineum were prepped and draped in the usual sterile fashion. I then introduced a biplanar ultrasound probe into the rectum and performed ultrasonography on the prostate. The prostate seminal vesicles, the base, the mid prostate, the apex were identified. The Denonvilliers' fascia was also identified. I first advanced the first marker in the patient's right side to the mid prostate and deployed the first worsted winder. The second worsted winder was then advanced under ultrasound guidance to the patient's left mid prostate . And finally the third worsted winder was advanced of the prostate left apex and deployed under ultrasound guidance. All 3 markers were confirmed to be present within the prostate on ultrasonography. Second procedure: The genitals and perineum were prepped and draped in usual sterile fashion. I then introduced a biplanar ultrasound probe into the rectum and performed ultrasonography and identified the Denonvilliers' fascia the prostate mid base and apex and seminal vesicles. The spacer gel mix was then prepared on the back table per manufactures instruction. Under ultrasound guidance in the midline perineum a bevel needle down we advanced through the perineum below the prostate into the space of Denonvilliers' fascia. This space which could be identified by ultrasound with a bright white layer between the prostate and the rectum. I then injected a puff of normal saline to identify the space further. After I confirmed that the needle was in the correct space in the mid prostate and the space of Denonvilliers' fascia between the rectum and the prostate. Then over the course of 15 seconds the gel matrix was injected slowly there was nice separation between the prostate and the rectum at the gel matrix was injected. The position of the gel matrix was confirmed by ultrasound. Then the injection needle was removed intact. Patient's perineum was cleaned patient was taken out of stirru and then taken back to the PACU in good condition. Surgeon: Brii Type of Anesthesia: General Drains: None Admit VTE Documentation VTE Present on Admission: No VTE Mechan Device Prophylaxis: SCD's
[2020-12-03 08:00] VITALS: BP 113/64; BP 98/65; PULSE 59; RESP 16; TEMP 36.3; O2SAT 95
[2020-12-03 08:15] VITALS: BP 113/64; BP 93/57; PULSE 56; RESP 16; O2SAT 94
[2020-12-03 08:30] VITALS: BP 101/64; BP 113/64; PULSE 60; RESP 16; TEMP 36.2; O2SAT 95
[2020-12-03 08:40] VITALS: BP 113/64
== END 2020-12-03 08:54 ==
LOC: SDC 05:51 → AC 05:52
PROVIDERS: PCP Family Medicine; Referring Provider Urology; Visit Provider Urology
PROC: (CPT 55874; principal; 2020-12-03 07:15)
DX: C61 Malignant neoplasm of prostate (principal); N40.1 Benign prostatic hyperplasia with lower urinary tract symptoms; R35.0 Frequency of micturition; R31.9 Hematuria, unspecified; I48.92 Unspecified atrial flutter; I10 Essential (primary) hypertension; E78.5 Hyperlipidemia, unspecified; E03.9 Hypothyroidism, unspecified; E66.9 Obesity, unspecified; Z68.29 Body mass index [BMI] 29.0-29.9, adult; Z79.01 Long term (current) use of anticoagulants; Z79.1 Long term (current) use of non-steroidal anti-inflammatories (NSAID); Z79.899 Other long term (current) drug therapy; Z85.51 Personal history of malignant neoplasm of bladder; Z85.528 Personal history of other malignant neoplasm of kidney; Z87.891 Personal history of nicotine dependence
CPT/HCPCS: 00902; 55876; J7120; J2405

== ENCOUNTER → 2020-12-08 07:49 | Outpatient (CLI) | payer MEDICARE, BC, SELFPAY ==
[2020-11-16 09:09] VITALS: BMI 30.7
[2020-12-03 06:28] VITALS: BMI 29.5
--- NOTE | 2020-12-08 07:52 | MRI_ITS ---
STUDY: MR PELVIS WITHOUT CONTRAST (PROSTATE) REASON FOR EXAM: Male, 70 years old. Planning for radiation of the prostate gland, intermediate risk from prostate cancer TECHNIQUE: Standardized multiparametric prostate MRI with T1, T2, DWI/ADC sequences were obtained in 3 orthogonal planes. COMPARISON: None. FINDINGS: The prostate volume measures 31 mm3. The contours of the prostate gland are smooth. There is not mass effect on the bladder base. Posterior to the urinary bladder, there is an elongated T2 bright nonenhancing collection interposed between the prostate and rectum measuring 1.7 x 2.8 x 5.1 cm. The transition zone is heterogenous. 9 x 14 mm ill-defined T2 hypointense nodule of the anterior left transitional zone at the junction with the peripheral zone. PI-RADS DWI score 4 - Focal markedly hypointense on ADC and markedly hyperintense on high b-value DWI; < 1.5 cm on axial. PI-RADS T2W score 4 - Non-circumscribed, homogeneous, moderately hypointense, and <1.5 cm in greatest dimension. The peripheral zone is homogenous. PI-RADS DWI score 2 - Linear/wedge shaped hypointense on ADC and/or linear/wedge shaped hyperintense on high b-value DWI. PI-RADS T2W score 2 - Linear, wedge-shaped, or diffuse mild hypointensity, usually with indistinct margin. The seminal vesicles demonstrate normal margins and T2 signal pattern. No mass lesion or invasion depicted. The rectoprostatic angles are normal. Urinary bladder is normal without wall thickening. The vascular structures of the are normal. The visualized hollow viscus structures are normal. No bone marrow edema or mass lesion depicted. MRI/Pelvis (Routine) IMPRESSION: 1. PIRADS v2.1 2019 -- 4 - High (clinically significant cancer is likely). No periprostatic mass. No pelvic adenopathy demonstrated. 2. 1.7 x 2.8 x 5.1 cm nonenhancing fluid collection between the prostate and rectum may be related to prior procedure/biopsy, such as hematoma/blood product. Electronically Signed: José Miguel Rivers MD ([place]) at 11:53 EDT , Service support ,
== END ==
PROVIDERS: PCP Family Medicine; Referring Provider Student in an Organized Health Care Education/Training Program; Visit Provider Student in an Organized Health Care Education/Training Program
DX: Z51.0 Encounter for antineoplastic radiation therapy (principal); C61 Malignant neoplasm of prostate
CPT/HCPCS: 72195; 77014; 77290

== ENCOUNTER → 2021-02-21 09:44 | Outpatient (CLI) | payer MEDICARE, BC, SELFPAY ==
[2021-02-21 10:54] LABS: PSA,Total- Diagnostic < 0.01 ng/mL (0.0-4.0)
== END ==
PROVIDERS: PCP Family Medicine; Visit Provider Urology
DX: R97.20 Elevated prostate specific antigen [PSA] (principal)
CPT/HCPCS: 36415; 84153

== ENCOUNTER → 2021-03-15 11:12 | Outpatient (CLI) | payer MEDICARE, BC, SELFPAY ==
[2021-03-15 15:48] LABS: Thyroid Stim Hormone (TSH) 0.15 uIU/mL (0.358-3.74)
== END ==
PROVIDERS: PCP Family Medicine; Referring Provider Family Medicine; Visit Provider Registered Nurse
DX: E03.9 Hypothyroidism, unspecified (principal)
CPT/HCPCS: 36415; 84443

== ENCOUNTER 2021-10-10 09:47 | Outpatient (CLI) | payer MEDICARE, BC, SELFPAY ==
[2021-10-10 11:33] LABS: PSA,Total- Diagnostic < 0.01 ng/mL (0.0-4.0)
== END 2021-10-10 23:59 | disposition home or self-care (01) ==
LOC: LAB 09:48
PROVIDERS: PCP Family Medicine; Referring Provider Urology; Visit Provider Urology
DX: R97.20 Elevated prostate specific antigen [PSA] (principal)
CPT/HCPCS: 36415; 84153

== ENCOUNTER → 2021-10-17 | Outpatient (CLI) | payer MEDICARE, BC, SELFPAY ==
[2021-10-17 15:34] LABS: Thyroid Stim Hormone (TSH) 1.96 uIU/mL (0.358-3.74)
== END | disposition home or self-care (01) ==
LOC: MFPLAB 10:28
PROVIDERS: PCP Family Medicine; Visit Provider Family Medicine
DX: E03.9 Hypothyroidism, unspecified (principal)
CPT/HCPCS: 36415; 84443

== ENCOUNTER 2022-01-18 21:12 | Emergency (ER) | payer MEDICARE, BC, SELFPAY ==
[2022-01-18 21:13] VITALS: BP 127/68; PULSE 87; RESP 16; TEMP 36.9; O2SAT 88; BMI 30.4
[2022-01-18 21:19] VITALS: BP 127/64; PULSE 85; RESP 18; TEMP 36.6; O2SAT 95
--- NOTE | 2022-01-18 22:11 | EDS_ITS ---
HPI History of Present Illness Chief Complaint: Complaint Informant: patient and spouse/S.O. 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 He had a catheter for the surgery and developed urinary retention post surgery. He is to follow-up with urology soon. He notes that today the urine looked dark and cloudy. He states he was told that if that happens he should come to the emergency department. He notes he has not accidentally pulled on the catheter recently. He denies any fever. Patient is on apixaban. Patient is currently on cefdinir and metronidazole. [facility] Medical History Abdominal distention Angioedema Arthritis Atrial flutter with rapid ventricular response Essential (primary) hypertension Fatty liver disease, nonalcoholic Former smoker Hemorrhoids Hyperlipidemia Hypothyroid Kidney disease Nausea vomiting and diarrhea Obesity Paroxysmal atrial flutter Psoriasis Renal cell carcinoma Shortness of breath Thyroid disease Transitional cell carcinoma of bladder Wears glasses Home Medications fenofibrate nanocrystallized 145 mg tablet 145 mg PO DAILY CHOLESTEROL LOWERING 11/19/13 [History Last Taken 04/15/20] apixaban 5 mg tablet 5 mg PO BID BLOOD CLOT 08/31/18 [History Last Taken 04/27/20] calcipotriene 0.005 % topical cream 60 g TP BID PRN PRN Rash/Topical Irritation 08/31/18 [History Last Taken 08/31/18] calcipotriene-betamethasone 0.005 %-0.064 % topical ointment 100 g TP DAILY PRN PRN Rash/Topical Irritation 08/31/18 [History Last Taken 08/31/18] amlodipine 10 mg tablet 10 mg PO DAILY blood pressure 09/23/19 [History Last Taken 12/03/20 05:15] tamsulosin 0.4 mg capsule 0.4 mg PO QHS prostate 09/23/19 [History Last Taken 04/14/20] ibuprofen 200 mg-diphenhydramine HCl 25 mg capsule 1 ea PO QHS sleep 04/15/20 [History Last Taken 04/14/20] losartan 100 mg tablet 100 mg PO PRN PRN HIGH BP 04/20/20 [History Last Taken Unknown] cabozantinib 40 mg tablet (Cabometyx) 40 mg PO DAILY 11/16/20 [History Last Taken 11/26/20] loperamide 2 mg capsule (Imodium A-D) 2 mg PO Q6H PRN Diarrhea 11/16/20 [History Last Taken Unknown] diphenoxylate-atropine 2.5 mg-0.025 mg tablet 1 tab PO PRN PRN Diarrhea 11/26/20 [History Last Taken Unknown] simethicone 125 mg capsule (Gas-X Extra Strength) 125 mg PO QD-BID PRN 12/22/20 [History Last Taken Unknown] diltiazem HCl 120 mg capsule,extended release 24 hr 120 mg PO DAILY #90 caps 07/07/21 [Rx Last Taken Unknown] levothyroxine 150 mcg tablet 150 mcg PO DAILY thyroid 10/04/21 [History Last Taken Unknown] ondansetron HCl 8 mg tablet 8 mg PO DAILY PRN nausea and vomiting 10/04/21 [History Last Taken Unknown] furosemide 20 mg tablet 20 mg PO DAILY WATER PILL #90 tabs 10/06/21 [Rx Last Taken Unknown] docusate sodium 100 mg capsule (Dulcolax Stool Softener (docusate)) 100 mg PO D AILY 10/10/21 [History Last Taken Unknown] polyethylene glycol 3350 17 gram/dose oral powder (Miralax) 17 g PO DAILY 10/10/21 [History Last Taken Unknown] metoprolol tartrate 50 mg tablet 50 mg PO BID #180 tabs 11/23/21 [Rx Last Taken Unknown] Allergy/AdvReac Type Severity Reaction Status Date / Time lisinopril Allergy Angioedema Verified 10/10/21 09:01 Family History Mother PAD (peripheral artery disease) CAD (coronary artery disease) Myocardial infarction, Onset Age: 84 S/P CABG x 4, Onset Age: 84 and valve replacement H/O heart valve replacement with bioprosthetic valve Father , Age 40 Cancer brain Surgical History H/O total adrenalectomy History of bladder surgery History of cardioversion (11/07/17) History of exploratory laparotomy (2012) History of kidney surgery History of open reduction and internal fixation (ORIF) procedure (~01/1986) History of tonsillectomy Hx of abdominal surgery Hx of prostate biopsy (~10/22/20) Hx of transesophageal echocardiography ([facility]) for monitoring (11/06/17) Hx of transurethral resection of prostate (~10/05/17) Social History household members: spouse housing: house Smoking Status: Former smoker Tobacco: How many years used: 12 alcohol intake: current alcohol intake frequency: a few times a week Alcohol type: beer and hard liquor caffeine: No ROS ROS ED Constitutional Constitutional ED: Denies chills or weight loss Eyes Eyes: Denies change in vision or diplopia ENT ENT ED: Denies ear pain, rhinorrhea or sore throat Cardiovascular Cardiovascular: Denies chest pain, orthopnea, palpitations or racing heartbeat Respiratory/Chest Respiratory/Chest: Denies cough, dyspnea or orthopnea Gastrointestinal Gastrointestinal: Reports abdominal pain; Denies diarrhea, nausea or vomiting Genitourinary Genitourinary ED: Reports other Details: See HPI ; Denies dysuria, hematuria or urinary frequency Musculoskeletal Musculoskeletal: Denies arthralgias or myalgias Integumentary Denies abscess or rash Neurologic Neurologic: Denies headache(s) or weakness Psychiatric Psychiatric: Denies anxiety, depression, suicidal ideation or suicidal thoughts Endocrine Endocrinology: Denies polydipsia, polyphagia or polyuria Allergic/Immunologic Allergic/Immunologic ED: Denies mouth swelling, tongue swelling or urticaria EXAM Physical Exam Const Vital Signs: 01/18/22 21:13 01/18/22 21:19 Temperature 98.5 F 98 F Temperature Source Temporal Temporal Pulse Rate 87 85 Respiratory Rate 16 18 Blood Pressure 127/68 H 127/64 H Blood Pressure Mean 87 85 Pulse Ox 88 95 Oxygen Delivery Method Room Air Nasal Cannula Oxygen Flow Rate (L/min) 2 Positive well nourished and well developed General Appearance ED: well developed HEENT Reports normocephalic, head/scalp atraumatic and moist mucous membranes Eyes PERRL and EOMs intact bilaterally Neck no lymphadenopathy, supple and no JVD Resp normal respiratory effort and clear to auscultation bilaterally Cardio regular rate, regular rhythm and no murmurs GI normal to inspection, nondistended, normoactive bowel sounds and non-tender Palpation: soft Narrative: Garcia catheter in place without complications. Back/Spine no CVA tenderness and normal ROM Extremity normal to inspection General Extremety ED: Negative for edema General Extremity: Negative for edema Neuro oriented x3 and CN's II-XII intact bilaterally Sensorium / Orientation: alert Motor Exam: strength 5/5 throughout Psych mental status grossly normal Mood & Affect: Negative for depressed or tearful Skin no rashes or lesions noted and no wounds MDM MDM MDM Narrative Medical decision making narrative: Urinalysis shows greater than 100 red blood cells negative nitrates 0-5 white cells 0-5 squamous cells 1+ bacteria. Patient's not have any retention the Garcia is draining. We talked about increasing his fluid as his specific gravity is 1.03 I think this will help him to not clot off his catheter as well. He has follow-up with his urologist in under 48 hours. He was given return instructions notes understanding return if worsening or concerns Lab Data Attestation: I reviewed the patient's lab results. Labs: Laboratory Results - last 24 hr 01/18/22 22:50 Urine Color Yellow Urine Clarity Clear Urine pH 5.0 Ur Specific Nunn 1.030 Urine Protein 100 H Urine Glucose (UA) Normal Urine Ketones 5 H Urine Occult Blood 250 H Urine Nitrite Negative Urine Bilirubin Negative Urine Urobilinogen Normal Ur Leukocyte Esterase 100 H Urine RBC > 100 SEEN Urine WBC 0-5 SEEN Ur Squamous Epith Cells 0-5 SEEN Calcium Oxalate Crystal RARE Urine Bacteria 1+ Urine Mucus 0 SEEN Discharge Plan Triage Chief Complaint: Complaint ED Provider: Charly Gutierrez Dx/Rx/DC Orders Clinical Impression: Hematuria, Prostate cancer, Anticoagulated Instructions: ED Hematuria Prescriptions: No Action amlodipine 10 mg tablet 10 mg PO DAILY tamsulosin 0.4 mg capsule 0.4 mg PO QHS levothyroxine 150 mcg tablet 150 mcg PO DAILY losartan 100 mg tablet 100 mg PO PRN PRN (Reason: HIGH BP) Cabometyx 40 mg tablet 40 mg PO DAILY Hold Instructions: patient holding Label Comments: STOPPONING FOR OR Rx Instructions: must be taken on empty stomach; no food at least 2 hrs before or 1 hr after dose loperamide [Imodium A-D] 2 mg capsule 2 mg PO Q6H PRN (Reason: Diarrhea) ondansetron HCl 8 mg tablet 8 mg PO DAILY PRN (Reason: nausea and vomiting) Label Comments: TAKE 1 TABLET BY MOUTH EVERY 12 HOURS NEEDED FOR NAUSEA/VOMITING. simethicone [Gas-X Extra Strength] 125 mg capsule 125 mg PO QD-BID PRN docusate sodium [Dulcolax Stool Softener (dss)] 100 mg capsule 100 mg PO DAILY polyethylene glycol 3350 [Miralax] 17 gram/dose powder 17 g PO DAILY fenofibrate nanocrystallized 145 MG tablet 145 mg PO DAILY calcipotriene 60 GM cream 60 g TP BID PRN PRN (Reason: Rash/Topical Irritation) calcipotriene-betamethasone 60 GM ointment 100 g TP DAILY PRN PRN (Reason: Rash/Topical Irritation) apixaban 5 MG tablet 5 mg PO BID Hold Instructions: Resume on 12/06/20. Label Comments: LAST DOSE 11/30/[address] FERNANDES PER ORDERS PRIOR TO OR ibuprofen-diphenhydramine HCl 1 EACH capsule 1 ea PO QHS diphenoxylate-atropine 2.5-0.025 mg tablet 1 tab PO PRN PRN (Reason: Diarrhea) Label Comments: TAKE 1 TABLET BY MOUTH FOUR TIMES DAILY NEEDED FOR UP TO 90 DAYS. diltiazem HCl 120 mg capsule,extended release 24hr 120 mg PO DAILY Qty: 90 3RF furosemide 20 mg tablet 20 mg PO DAILY Qty: 90 3RF metoprolol tartrate 50 mg tablet 50 mg PO BID Qty: 180 3RF Primary Care Provider: Cara Valentine Referrals: Cara Valentine MD [Primary Care Provider] - Activity Restrictions/Additional Instructions: Follow-up with urology as scheduled Disposition Disposition: Home, Self Care
[2022-01-18 23:07] LABS: Mucous, Urine 0 SEEN /hpf (<or=2+)
[2022-01-18 23:10] LABS: Color, Urine Yellow (Yellow); Glucose, Dipstick Normal (Normal); Ketone-Dipstick 5 mg/dl (Negative); Leukocyte Esterase-Dipstick 100 /ul (Negative); Nitrite-Dipstick Negative (Negative); Occult Blood-Urine 250 /ul (Negative); Protein-Dipstick 100 mg/dl (Negative); Urine Bilirubin Dipstick Negative (Negative); Urine Clarity Clear (Clear); Urine Urobilinogen Normal (Normal)
[2022-01-18 23:48] LABS: Bacteria 1+ /hpf (None Seen); Calcium Oxalate Crystals Ur RARE /hpf (<or=2+); Red Blood Cells-Urine > 100 SEEN /hpf (0-5); Squamous Epithelial Cells - UA 0-5 SEEN /hpf (0-5); White Blood Cells 0-5 SEEN /hpf (0-5)
[2022-01-19 00:22] VITALS: BP 122/60; PULSE 78; RESP 16
== END 2022-01-19 00:22 | disposition home or self-care (01) ==
PROVIDERS: Emergency Provider Emergency Medicine; PCP Family Medicine; Visit Provider Emergency Medicine
DX: R31.9 Hematuria, unspecified (principal); Z93.3 Colostomy status; C61 Malignant neoplasm of prostate; R33.8 Other retention of urine; I10 Essential (primary) hypertension; E78.5 Hyperlipidemia, unspecified; E03.9 Hypothyroidism, unspecified; E66.9 Obesity, unspecified; Z79.01 Long term (current) use of anticoagulants; Z79.899 Other long term (current) drug therapy; Z87.891 Personal history of nicotine dependence
CPT/HCPCS: 81001; 87086; 99284

== ENCOUNTER 2022-01-19 16:59 | Emergency (ER) | payer MEDICARE, BC, SELFPAY ==
[2022-01-19 17:00] VITALS: BP 118/76; PULSE 93; RESP 18; TEMP 35.7
[2022-01-19 17:01] VITALS: BP 118/76; PULSE 93; RESP 18; TEMP 35.7; BMI 30.6
[2022-01-19 17:11] VITALS: BP 129/69; PULSE 78; RESP 18; TEMP 36.6; O2SAT 92
[2022-01-19 18:13] LABS: Anion Gap 5 (5-15); BUN 14 mg/dL (7-18); BUN/Creat Ratio 13.1 RATIO (10-20); Calcium,Total 9.2 mg/dL (8.5-10.1); Chloride 102 mmol/L (98-107); Creatinine, Serum 1.07 mg/dL (0.70-1.30); EST Glomerular Filtration Rate 73 mL/min (>60); Est Glom Filt Rate - Afr Amer 88 mL/min (>60); Estimated Creatinine Clearance 73.64 ml/min; Glucose 105 mg/dL (74-106); Potassium 3.8 mmol/L (3.5-5.1); Sodium Level 134 mmol/L (136-145)
[2022-01-19 18:17] LABS: Absolute Lymphocyte Count 1.22 X10^3/uL (0.83-4.51); Absolute Neutrophil Count 9.1 X10^3/uL (2.0-7.7); Basophil# 0.06 X10^3/uL; Basophil% 0.5 % (0-1); Eosinophil# 0.33 X10^3/uL; Eosinophils% 2.8 % (0-5); Hematocrit 34.4 % (40-54); Hemoglobin 11.8 g/dL (13.0-16.5); Lymphocyte # 1.22 X10^3/ul (0.83-4.51); Lymphocyte % 10.4 % (19-41); Mean Corp Hgb Conc 34.3 g/dL (32-36); Mean Corpuscular Volume 93.2 fL (80-94); Mean Platelet Vol. 9.3 fl (6.2-12.0); Monocyte# 0.91 X10^3/uL; Monocyte% 7.7 % (0-10); NRBC Flagged by Analyzer 0 % (0-5); Neutrophil # 9.14 X10^3/uL (2.7-7.7); Neutrophil % 77.8 % (47-70); Platelet Count 493 K/mm3 (150-450); RBC Distribution Width CV 15.9 % (11.6-14.6); RBC Distribution Width SD 53.6 fl (35.1-43.9); Red Blood Count 3.69 M/mm3 (4.6-6.2); White Blood Count 11.8 K/mm3 (4.4-11.0)
--- NOTE | 2022-01-19 18:23 | EDS_ITS ---
HPI <ENE Sosa - Last Filed: 01/19/22 18:38> History of Present Illness Chief Complaint: Complaint Narrative Narrative: 71-year-old male with history of bladder cancer, prostate cancer who recently had a colostomy secondary to rectal damage secondary to chemo and radiation. Patient has had this colostomy for close to 2 weeks, he has been going well. He has had a Garcia catheter for 2 weeks, and states that he has been having pain over the last several days. He was seen here yesterday, he did have a urinalysis done which was negative. Today, the patient was concerned that it was not draining that much and he is here for evaluation. He is also concerned about his kidney function. He does see a [facility] urologist tomorrow. Denies any fevers, chills, back pain. PFS <ENE Sosa - Last Filed: 01/19/22 18:38> [facility] Medical History Abdominal distention Angioedema Arthritis Atrial flutter with rapid ventricular response Essential (primary) hypertension Fatty liver disease, nonalcoholic Former smoker Hemorrhoids Hyperlipidemia Hypothyroid Kidney disease Nausea vomiting and diarrhea Obesity Paroxysmal atrial flutter Psoriasis Renal cell carcinoma Shortness of breath Thyroid disease Transitional cell carcinoma of bladder Wears glasses Home Medications fenofibrate nanocrystallized 145 mg tablet 145 mg PO DAILY CHOLESTEROL LOWERING 11/19/13 [History Last Taken 04/15/20] apixaban 5 mg tablet 5 mg PO BID BLOOD CLOT 08/31/18 [History Last Taken 04/27/20] calcipotriene 0.005 % topical cream 60 g TP BID PRN PRN Rash/Topical Irritation 08/31/18 [History Last Taken 08/31/18] calcipotriene-betamethasone 0.005 %-0.064 % topical ointment 100 g TP DAILY PRN PRN Rash/Topical Irritation 08/31/18 [History Last Taken 08/31/18] amlodipine 10 mg tablet 10 mg PO DAILY blood pressure 09/23/19 [History Last Taken 12/03/20 05:15] tamsulosin 0.4 mg capsule 0.4 mg PO QHS prostate 09/23/19 [History Last Taken 04/14/20] ibuprofen 200 mg-diphenhydramine HCl 25 mg capsule 1 ea PO QHS sleep 04/15/20 [History Last Taken 04/14/20] losartan 100 mg tablet 100 mg PO PRN PRN HIGH BP 04/20/20 [History Last Taken Unknown] cabozantinib 40 mg tablet (Cabometyx) 40 mg PO DAILY 11/16/20 [History Last Taken 11/26/20] loperamide 2 mg capsule (Imodium A-D) 2 mg PO Q6H PRN Diarrhea 11/16/20 [History Last Taken Unknown] diphenoxylate-atropine 2.5 mg-0.025 mg tablet 1 tab PO PRN PRN Diarrhea 11/26/20 [History Last Taken Unknown] simethicone 125 mg capsule (Gas-X Extra Strength) 125 mg PO QD-BID PRN Abdominal Discomfort 12/22/20 [History Last Taken Unknown] diltiazem HCl 120 mg capsule,extended release 24 hr 120 mg PO DAILY #90 caps 07/07/21 [Rx Last Taken Unknown] levothyroxine 150 mcg tablet 150 mcg PO DAILY thyroid 10/04/21 [History Last Taken Unknown] ondansetron HCl 8 mg tablet 8 mg PO DAILY PRN nausea and vomiting 10/04/21 [History Last Taken Unknown] furosemide 20 mg tablet 20 mg PO DAILY WATER PILL #90 tabs 10/06/21 [Rx Last Taken Unknown] docusate sodium 100 mg capsule (Dulcolax Stool Softener (docusate)) 100 mg PO DAILY 10/10/21 [History Last Taken Unknown] polyethylene glycol 3350 17 gram/dose oral powder (Miralax) 17 g PO DAILY 10/10/21 [History Last Taken Unknown] metoprolol tartrate 50 mg tablet 50 mg PO BID #180 tabs 11/23/21 [Rx Last Taken Unknown] Allergy/AdvReac Type Severity Reaction Status Date / Time lisinopril Allergy Angioedema Verified 01/19/22 17:12 Family History Mother PAD (peripheral artery disease) CAD (coronary artery disease) Myocardial infarction, Onset Age: 84 S/P CABG x 4, Onset Age: 84 and valve replacement H/O heart valve replacement with bioprosthetic valve Father , Age 40 Cancer brain Surgical History H/O total adrenalectomy History of bladder surgery History of cardioversion (11/07/17) History of exploratory laparotomy (2012) History of kidney surgery History of open reduction and internal fixation (ORIF) procedure (~01/1986) History of tonsillectomy Hx of abdominal surgery Hx of prostate biopsy (~10/22/20) Hx of transesophageal echocardiography (WHITLEY) for monitoring (11/06/17) Hx of transurethral resection of prostate (~10/05/17) Social History household members: spouse housing: house Smoking Status: Former smoker Tobacco: How many years used: 12 alcohol intake: current alcohol intake frequency: a few times a week Alcohol type: beer and hard liquor caffeine: No ROS <ENE Sosa - Last Filed: 01/19/22 18:38> ROS ED ROS Narrative Constitutional: Negative for fever, chills, weight loss, weakness Eyes: Negative for vision loss, vision change, double vision ENT: Negative for any sore throat, ear pain, congestion Cardiovascular: Negative for any chest pain, tightness, palpitations Respiratory: Negative for any cough, sputum production, hemoptysis, dyspnea, dyspnea on exertion, orthopnea Gastrointestinal: Negative for any nausea, vomiting, diarrhea, constipation, blood in stool, blood in vomit. Positive for pain to lower abdomen : Negative for any urinary frequency, dysuria, retention, blood in urine. Positive for dark urine Muscle skeletal: Negative for any muscle joint pain, stiffness, myalgias, arthralgias, neck pain, back pain Neurological: Negative for any headache, syncope, numbness or tingling, dizziness Skin: Negative for any rashes, lumps, itching, abrasions, lacerations Psychiatric: Negative for any depression, anxiety, stress, suicidal ideation, homicidal ideation Hematologic: Negative for any easy bruising, excessive bruising, easy bleeding Allergies: Negative for any eczema, hives, rash EXAM <ENE Sosa - Last Filed: 01/19/22 18:38> Physical Exam Const Vital Signs: 01/19/22 17:01 01/19/22 17:00 01/19/22 17:11 Temperature 96.2 F L 96.2 F L 97.8 F Temperature Source Temporal Temporal Oral Pulse Rate 93 93 78 Respiratory Rate 18 18 18 Blood Pressure 118/76 118/76 129/69 H Blood Pressure Mean 90 90 89 Pulse Ox 92 Oxygen Delivery Method Room Air 01/19/22 18:32 01/19/22 18:44 Temperature 98.1 F Temperature Source Pulse Rate 66 65 Respiratory Rate 12 14 Blood Pressure 109/63 118/65 Blood Pressure Mean 78 Pulse Ox 92 92 Oxygen Delivery Method Room Air <Dr. Ez Hooks MD - Last Filed: 01/19/22 19:11> Physical Exam Const Vital Signs: 01/19/22 17:01 01/19/22 17:00 01/19/22 17:11 Temperature 96.2 F L 96.2 F L 97.8 F Temperature Source Temporal Temporal Oral Pulse Rate 93 93 78 Respiratory Rate 18 18 18 Blood Pressure 118/76 118/76 129/69 H Blood Pressure Mean 90 90 89 Pulse Ox 92 Oxygen Delivery Method Room Air 01/19/22 18:32 01/19/22 18:44 Temperature 98.1 F Temperature Source Pulse Rate 66 65 Respiratory Rate 12 14 Blood Pressure 109/63 118/65 Blood Pressure Mean 78 Pulse Ox 92 92 Oxygen Delivery Method Room Air MDM <ENE Sosa - Last Filed: 01/19/22 18:38> [facility] Narrative Medical decision making narrative: Vital signs reviewed. HEET: Head normocephalic atraumatic, TMs clear bilaterally. Posterior pharynx is clear, moist mucous membranes. Nares clear bilaterally. Neck: Supple with no lymphadenopathy or tenderness. No signs of meningismus, negative jolt sign. Cardiac: Regular rate and rhythm no murmurs gallops or rubs, equal peripheral pulses bilaterally. Respiratory: Lungs clear to auscultation bilaterally. No chest tenderness. Abdomen: Soft, nontender, nondistended. No abdominal bruit or pulsatile masses. No hepatosplenomegaly. Patient belly was soft, unremarkable, there was 300 cc of dark urine in the bag. I did BladderScan the patient, it was less than 18 mL. Extremities: No peripheral edema, no signs of gross trauma or deformity. Active full range of motion of all extremities. Neuro: Cranial nerves II through XII intact, no focal neurological deficits. Skin: Clean dry and intact with no rash, purpura, petechiae, vesicles or pustules. Backs/flank: No CVA tenderness, no midline spinal tenderness, no deformity. Psych: Normal mood and affect. No SI, HI or acute psychosis. : Patient's Garcia catheter appears to be intact, there is no redness, irritation around the tip of the penile meatus. Lab Data Attestation: I reviewed the patient's lab results. Labs: Laboratory Results - last 24 hr 01/19/22 01/19/22 17:50 17:50 WBC 11.8 H RBC 3.69 L Hgb 11.8 L Hct 34.4 L MCV 93.2 MCH 32.0 MCHC 34.3 RDW Std Deviation 53.6 H RDW Coeff of Jose 15.9 H Plt Count 493 H MPV 9.3 Immature Gran % (Auto) 0.800 Neut % (Auto) 77.8 H Lymph % (Auto) 10.4 L [place] % (Auto) 7.7 Eos % (Auto) 2.8 Baso % (Auto) 0.5 Absolute Neuts (auto) 9.1 H Absolute Lymphs (auto) 1.22 Nucleated RBC % 0 Sodium 134 L Potassium 3.8 Chloride 102 Carbon Dioxide 27.0 Anion Gap 5 BUN 14 Creatinine 1.07 Estim Creat Clear Calc 73.64 Est GFR (MDRD) Af Amer 88 Est GFR (MDRD) Non-Af 73 BUN/Creatinine Ratio 13.1 Glucose 105 Calcium 9.2 Treatment and Re-Evaluation Narrative: Patient appears well, patient appears nontoxic, vital signs are stable. Patient presents the [place] apartment with concerned that his Garcia is not draining was also concerned about his kidney function. Patient was given IV fluids, patient had appropriate drainage from the Garcia catheter. Patient's kidney functions were grossly unremarkable. Patient CBC was unremarkable. At this time, believe the patient's Garcia is functioning properly, I believe the patient is having pain from the Garcia insertion in general. He will follow-up with urology tomorrow and instructed return for any worsening symptoms. Patient did have a negative urinalysis test yesterday, patient is stable. <Dr. Ez Hooks MD - Last Filed: 01/19/22 19:11> [facility] Narrative Medical decision making narrative: InsertVital signs reviewed. HEET: Head normocephalic atraumatic, TMs clear bilaterally. Posterior pharynx is clear, moist mucous membranes. Nares clear bilaterally. Neck: Supple with no lymphadenopathy or tenderness. No signs of meningismus, negative jolt sign. Cardiac: Regular rate and rhythm no murmurs gallops or rubs, equal peripheral pulses bilaterally. Respiratory: Lungs clear to auscultation bilaterally. No chest tenderness. Abdomen: Soft, nontender, nondistended. No abdominal bruit or pulsatile masses. No hepatosplenomegaly. Patient belly was soft, unremarkable, there was 300 cc of dark urine in the bag. I did BladderScan the patient, it was less than 18 mL. Extremities: No peripheral edema, no signs of gross trauma or deformity. Active full range of motion of all extremities. Neuro: Cranial nerves II through XII intact, no focal neurological deficits. Skin: Clean dry and intact with no rash, purpura, petechiae, vesicles or pustules. Backs/flank: No CVA tenderness, no midline spinal tenderness, no deformity. Psych: Normal mood and affect. No SI, HI or acute psychosis. : Patient's Garcia catheter appears to be intact, there is no redness, irritation around the tip of the penile meatus. I have personally performed a face to face assessment of the patient and have reviewed the SHARMILA Note. I performed a substantive portion of the visit including all aspects of the following. My oneill findings include: History is pain at penis and decreased urine output. Patient had Garcia placed because of prostate cancer and difficulty urinating. He denies fever, chills night sweats. He was unaware that his urine is dark in color. Exam is penis is circumcised with no erythema, swelling or drainage. Garcia is in proper position. There is 200 cc of tiffany-colored urine. There is no pain the patient in the suprapubic area. Testes are centered bilaterally. There is no inguinal lymphadenopathy. Medical Decision Making suspect irritation from Garcia. Will obtain UA to assess for infection versus colonization and evaluate for bilirubin since his urine is dark versus dehydration. Other additions or changes: Patient work-up was unremarkable and he will be discharged to home Lab Data Labs: Laboratory Results - last 24 hr 01/19/22 01/19/22 17:50 17:50 WBC 11.8 H RBC 3.69 L Hgb 11.8 L Hct 34.4 L MCV 93.2 MCH 32.0 MCHC 34.3 RDW Std Deviation 53.6 H RDW Coeff of Jose 15.9 H Plt Count 493 H MPV 9.3 Immature Gran % (Auto) 0.800 Neut % (Auto) 77.8 H Lymph % (Auto) 10.4 L [place] % (Auto) 7.7 Eos % (Auto) 2.8 Baso % (Auto) 0.5 Absolute Neuts (auto) 9.1 H Absolute Lymphs (auto) 1.22 Nucleated RBC % 0 Sodium 134 L Potassium 3.8 Chloride 102 Carbon Dioxide 27.0 Anion Gap 5 BUN 14 Creatinine 1.07 Estim Creat Clear Calc 73.64 Est GFR (MDRD) Af Amer 88 Est GFR (MDRD) Non-Af 73 BUN/Creatinine Ratio 13.1 Glucose 105 Calcium 9.2 Discharge Plan Triage Chief Complaint: Complaint ED Midlevel Provider: Bentley Lakhani ED Provider: Ez Hooks Dx/Rx/DC Orders Clinical Impression: Garcia catheter problem Instructions: ED Garcia Catheter, Care Prescriptions: No Action amlodipine 10 mg tablet 10 mg PO DAILY tamsulosin 0.4 mg capsule 0.4 mg PO QHS levothyroxine 150 mcg tablet 150 mcg PO DAILY losartan 100 mg tablet 100 mg PO PRN PRN (Reason: HIGH BP) Cabometyx 40 mg tablet 40 mg PO DAILY Hold Instructions: patient holding Label Comments: STOPPONING FOR OR Rx Instructions: must be taken on empty stomach; no food at least 2 hrs before or 1 hr after dose loperamide [Imodium A-D] 2 mg capsule 2 mg PO Q6H PRN (Reason: Diarrhea) ondansetron HCl 8 mg tablet 8 mg PO DAILY PRN (Reason: nausea and vomiting) Label Comments: TAKE 1 TABLET BY MOUTH EVERY 12 HOURS NEEDED FOR NAUSEA/VOMITING. simethicone [Gas-X Extra Strength] 125 mg capsule 125 mg PO QD-BID PRN (Reason: Abdominal Discomfort) docusate sodium [Dulcolax Stool Softener (dss)] 100 mg capsule 100 mg PO DAILY polyethylene glycol 3350 [Miralax] 17 gram/dose powder 17 g PO DAILY fenofibrate nanocrystallized 145 MG tablet 145 mg PO DAILY calcipotriene 60 GM cream 60 g TP BID PRN PRN (Reason: Rash/Topical Irritation) calcipotriene-betamethasone 60 GM ointment 100 g TP DAILY PRN PRN (Reason: Rash/Topical Irritation) apixaban 5 MG tablet 5 mg PO BID Hold Instructions: Resume on 12/06/20. Label Comments: LAST DOSE 11/30/[address] FERNANDES PER ORDERS PRIOR TO OR ibuprofen-diphenhydramine HCl 1 EACH capsule 1 ea PO QHS diphenoxylate-atropine 2.5-0.025 mg tablet 1 tab PO PRN PRN (Reason: Diarrhea) Label Comments: TAKE 1 TABLET BY MOUTH FOUR TIMES DAILY NEEDED FOR UP TO 90 DAYS. diltiazem HCl 120 mg capsule,extended release 24hr 120 mg PO DAILY Qty: 90 3RF furosemide 20 mg tablet 20 mg PO DAILY Qty: 90 3RF metoprolol tartrate 50 mg tablet 50 mg PO BID Qty: 180 3RF Primary Care Provider: Cara Valentine Referrals: Cara Valentine MD [Primary Care Provider] - Activity Restrictions/Additional Instructions: Please follow-up closely with your urologist tomorrow at the [facility] Print Language: Croatian Disposition Disposition: Home, Self Care Discharge Date/Time: 01/19/22 18:46
[2022-01-19 18:32] VITALS: BP 109/63; PULSE 66; RESP 12; O2SAT 92
[2022-01-19 18:44] VITALS: BP 118/65; PULSE 65; RESP 14; TEMP 36.7; O2SAT 92
== END 2022-01-19 18:46 | disposition home or self-care (01) ==
PROVIDERS: Nurse Practitioner; Emergency Provider Emergency Medicine; PCP Family Medicine; Visit Provider Emergency Medicine
DX: T83.9XXA Unspecified complication of genitourinary prosthetic device, implant and graft, initial encounter (principal); Z93.3 Colostomy status; I10 Essential (primary) hypertension; E78.5 Hyperlipidemia, unspecified; E03.9 Hypothyroidism, unspecified; E66.9 Obesity, unspecified; Z79.01 Long term (current) use of anticoagulants; Z79.899 Other long term (current) drug therapy; Z85.51 Personal history of malignant neoplasm of bladder; Z85.46 Personal history of malignant neoplasm of prostate; Z87.891 Personal history of nicotine dependence
CPT/HCPCS: 80048; 85025; 96360; 99283; J7040; A4216

== ENCOUNTER → 2022-03-31 | Outpatient (CLI) | payer MEDICARE, BC, SELFPAY ==
--- NOTE | 2022-03-31 14:55 | CT_ITS ---
STUDY: CT PELVIS WITH CONTRAST REASON FOR EXAM: Male, 71 years old. Abscess between prostate and rectum RADIATION DOSAGE (If Supplied By Facility): CTDIvol = ( 28.20 ) mGy, DLP = ( 1273.30 ) mGycm TECHNIQUE: Transaxial imaging of the pelvis was performed without oral contrast. Oral and amp; IV Readi-CAT and amp; 100mL Isovue-300 was administered intravenously. Individualized dose optimization techniques were used for this CT. COMPARISON: None. FINDINGS: Diffuse circumferential wall thickening of the urinary bladder more prominent at the base of the bladder in the left wall the bladder. Metallic radiation seeds are seen within the prostate. Air bubbles are seen along the posterior aspect of the prostate and anterior aspect of the rectal wall. If there has been recent placement of the prostatic seeds, this may be related to the procedure. Otherwise, an inflammatory process should be ruled out. This extends to the region of the perineum. Normal visualized small intestine. There are multiple colonic diverticula of the sigmoid colon consistent with chronic diverticulosis. There is no pelvic fluid. There is no pelvic lymphadenopathy or mass lesion. There is diffuse atherosclerotic calcification of the pelvic arteries. An ostomy is seen in the left lower quadrant. There are diffuse degenerative changes of the visualized lumbar spine. CT/Pelvis WITH IV Contrast IMPRESSION: Status post radiation seeds placement of the prostate. Small air bubbles are seen between the posterior aspect of the prostate in the anterior rectal wall. This may be either related to an inflammatory process versus postprocedural air. Clinical correlation is recommended. Electronically Signed: Avel Samuels MD at 15:29 EDT ,
[2022-03-31 15:26] LABS: CREATININE FINGERSTICK < 0.9 mg/dL (0.70-1.30); EGFR FINGERSTICK > 60.0000 mL/min (>60)
== END | disposition home or self-care (01) ==
LOC: CT 14:52
PROVIDERS: PCP Family Medicine; Referring Provider Family Medicine; Visit Provider Family Medicine
DX: N34.0 Urethral abscess (principal)
CPT/HCPCS: 72193; Q9967

== ENCOUNTER 2022-05-03 05:55 | Day surgery (SDC) | payer MEDICARE, BC, SELFPAY ==
[2022-05-03] VITALS (9 sets, daily range): BP systolic 106–122; BP diastolic 52–75; PULSE 62–82; RESP 16–18; TEMP 36.1–37.2; O2SAT 91–95; BMI 26.7
[2022-05-03] MEDS: Lactated Ringers 1,000 ML 15 ML IV (06:38)
[2022-05-03] MEDS: Gabapentin 300 MG Capsule PO (07:23)
[2022-05-03] MEDS: Cefazolin 2 GM in 0.9% Normal Saline 100 ML IV (08:03)
[2022-05-03] MEDS: Lidocaine Jelly 2% 20 ML Syringe (URO-JET) 1 APPLIC (08:11)
[2022-05-03] MEDS: Lidocaine 1% (30 ml sdv) 30 ML Vial (08:11)
--- NOTE | 2022-05-03 08:13 | DCINST_ITS ---
Discharge Instructions Diet Discharge Diet: No restrictions, Light diet - advance as tolerated and Soft diet Activity Discharge Activity: Return to Normal Activity Dressing / Incision Call your doctor if you observe: Fever of 101 or Higher Follow Up Care Please Follow Up With: Dionicio Teresa MD When: next week. Test Results: Test results from this visit will be discussed in further detail at your follow- up appointment, if applicable. Discharge Plan Admission Primary Reason for Your Visit: cystoscopy and ultrasound of rectum and prostate Attending Provider: Dionicio Teresa Primary Care Provider: Cara Valentine Discharge Orders/Prescriptions Prescriptions: Continued amlodipine 10 mg tablet 10 mg PO DAILY levothyroxine 150 mcg tablet 150 mcg PO DAILY losartan 100 mg tablet 100 mg PO PRN PRN (Reason: HIGH BP) Cabometyx 40 mg tablet 40 mg PO .7D, ONXDM2C Hold Instructions: patient holding Label Comments: STOPPING FOR OR Rx Instructions: must be taken on empty stomach; no food at least 2 hrs before or 1 hr after dose ondansetron HCl 8 mg tablet 8 mg PO DAILY PRN (Reason: nausea and vomiting) Label Comments: TAKE 1 TABLET BY MOUTH EVERY 12 HOURS NEEDED FOR NAUSEA/VOMITING. gabapentin 300 mg capsule 300 mg PO TID pentoxifylline 400 mg tablet extended release 400 mg PO TID Qty: 270 1RF Rx Instructions: must administer with a meal/food vitamin E mixed 1,000 unit capsule 1,000 unit PO DAILY Qty: 90 1RF Rx Instructions: take one tab PO daily fenofibrate nanocrystallized 145 MG tablet 145 mg PO DAILY apixaban 5 MG tablet 5 mg PO BID Hold Instructions: Resume on 12/06/20. Label Comments: LAST DOSE 04/30/[address] FERNANDES PER ORDERS PRIOR TO OR diphenoxylate-atropine 2.5-0.025 mg tablet 1 tab PO PRN PRN (Reason: Diarrhea) Label Comments: TAKE 1 TABLET BY MOUTH FOUR TIMES DAILY NEEDED FOR UP TO 90 DAYS. diltiazem HCl 120 mg capsule,extended release 24hr 120 mg PO DAILY Qty: 90 3RF metoprolol tartrate 50 mg tablet 50 mg PO BID Qty: 180 3RF Referrals / Follow Up: Cara Valentine MD [Primary Care Provider] - Dionicio Teresa MD [Med Staff - Active Staff] - Disposition Disposition (needs filled in before D/C Order can be placed): Home, Self Care
--- NOTE | 2022-05-03 08:28 | OP.PCM_ITS ---
Report of Operation Date of Procedure: 05/03/22 Pre-Operative Diagnosis: Rectal pain prostate pain after radiation Post-Operative Diagnosis: prostate rectal fistula Surgery/Procedure Performed:: Cystoscopy diagnostic and transrectal ultrasound of the prostate Description of Surgical Findings:: Indication this is a 71-year-old male who has prostate cancer he had Ana M 7 prostate cancer with a PSA elevated but less than 10 we talked about the options of management that point he elected to have radiation therapy to the prostate he was not felt to be a good surgical candidate because of his prior surgeries. After radiation he developed a lot of pain in the rectum pain with bowel movements and ended up having a diverting colostomy as a palliative measure. I did do a cystoscopy in the office about 6 months ago it was completely clear normal prostate normal bladder my office notes were reviewed at that point patient was to still having pain but no sign of a fistula. Most recently has progressed now reports some fluid coming from his rectum all the time and also has been having more pain or discomfort in the rectal area. I did review a CAT scan and that was done about a month ago and at that point there was a weird fluid collection abscess below the rectum that was unsure what this was. Now at this point I think this was the fistula tract developing and he is ruptured through the rectum Patient was taken back to the operating within the MAC local anesthesia he was placed in dorsolithotomy position. The penis and testicles were prepped and draped in a sterile fashion. 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 He could see a lot of whitish scars material within the prostate itself I then went into the bladder and the bladder was distended with urine. I then remove the cystoscope did a transrectal ultrasound the fluid abscess collection was gone I think that abscess was wearing through and had broken through and it fistulized to the rectum and is developed a fistula from the prostate to the rectum at this point I placed a Gomez catheter 16 [place] catheter into the bladder to divert the urine away from the rectum but he is got a significant fistula I do not think this is going to heal spontaneously negative send him back up to the [facility] referral to see a reconstructive specialist to consider options of management for his fistula that is developed between the rectum and the prostate.. Surgeon: Dionicio Teresa Type of Anesthesia: MAC Anesthesiologist: Dionicio Teresa Drains: 16 fr gomez Admit VTE Documentation VTE Present on Admission: No VTE Mechan Device Prophylaxis: SCD's VTE Pharm Prophylaxis ordered?: No
== END 2022-05-03 10:19 | disposition home or self-care (01) ==
LOC: SDC 05:56 → AC 05:56
PROVIDERS: PCP Family Medicine; Referring Provider Urology; Visit Provider Urology
PROC: (CPT 55700; principal; 2022-05-03 07:50)
DX: K60.4 Rectal fistula (principal); Z93.3 Colostomy status; I48.92 Unspecified atrial flutter; C61 Malignant neoplasm of prostate; K62.89 Other specified diseases of anus and rectum; E03.9 Hypothyroidism, unspecified; N42.89 Other specified disorders of prostate; I10 Essential (primary) hypertension; K62.7 Radiation proctitis; M19.90 Unspecified osteoarthritis, unspecified site; Z79.899 Other long term (current) drug therapy; Z79.01 Long term (current) use of anticoagulants; Z87.891 Personal history of nicotine dependence; Z85.528 Personal history of other malignant neoplasm of kidney; Z85.51 Personal history of malignant neoplasm of bladder
CPT/HCPCS: 52000; 00910; J7120; J2405

== ENCOUNTER → 2022-06-19 | Outpatient (CLI) | payer MEDICARE, BC, SELFPAY ==
[2022-06-19 14:30] LABS: Hematocrit 26.4 % (40-54); Hemoglobin 7.9 g/dL (13.0-16.5); Mean Corp Hgb Conc 29.9 g/dL (32-36); Mean Corpuscular Hgb 27.8 pg (27.0-32.0); Mean Platelet Vol. 10.7 fl (6.2-12.0); POSITIVE MORPHOLOGY YES; Platelet Count 539 K/mm3 (150-450); RBC Distribution Width CV 22.2 % (11.6-14.6); RBC Distribution Width SD 75.4 fl (35.1-43.9); Red Blood Count 2.84 M/mm3 (4.6-6.2)
[2022-06-19 14:35] LABS: Anion Gap 8 (5-15); BUN 33 mg/dL (7-18); BUN/Creat Ratio 21.6 RATIO (10-20); Calcium,Total 8.7 mg/dL (8.5-10.1); Chloride 102 mmol/L (98-107); Creatinine, Serum 1.53 mg/dL (0.70-1.30); EST Glomerular Filtration Rate 48 mL/min (>60); Est Glom Filt Rate - Afr Amer 58 mL/min (>60); Glucose 153 mg/dL (74-106); Phosphorus 3.4 mg/dL (2.5-4.9); Potassium 4.2 mmol/L (3.5-5.1); Sodium Level 136 mmol/L (136-145)
== END | disposition home or self-care (01) ==
LOC: LABSPEC 14:17
PROVIDERS: PCP Family Medicine
DX: E43 Unspecified severe protein-calorie malnutrition (principal)
CPT/HCPCS: 80048; 83735; 84100; 85027

== ENCOUNTER → 2022-06-26 | Outpatient (CLI) | payer MEDICARE, BC, SELFPAY ==
[2022-06-26 13:10] LABS: Hematocrit 25.4 % (40-54); Hemoglobin 7.6 g/dL (13.0-16.5); Mean Corp Hgb Conc 29.9 g/dL (32-36); Mean Corpuscular Hgb 27.4 pg (27.0-32.0); Mean Corpuscular Volume 91.7 fL (80-94); Mean Platelet Vol. 10.6 fl (6.2-12.0); POSITIVE MORPHOLOGY YES; Platelet Count 388 K/mm3 (150-450); RBC Distribution Width CV 21.5 % (11.6-14.6); Red Blood Count 2.77 M/mm3 (4.6-6.2); White Blood Count 14.1 K/mm3 (4.4-11.0)
[2022-06-26 13:13] LABS: Scan Indicated on CBC? Y/N YES- FLAGS NOTED
[2022-06-26 13:38] LABS: ALB/GLOB Ratio 0.4 RATIO (0.9-2.4); AST(SGOT) 73 U/L (15-37); Alanine Aminotransfer ALT/SGPT 176 U/L (16-61); Albumin, Serum 2.2 g/dL (3.2-5.0); Alkaline Phosphatase 132 U/L (45-117); Anion Gap 7 (5-15); BUN 34 mg/dL (7-18); BUN/Creat Ratio 27.6 RATIO (10-20); Chloride 107 mmol/L (98-107); Creatinine, Serum 1.23 mg/dL (0.70-1.30); EST Glomerular Filtration Rate 62 mL/min (>60); Est Glom Filt Rate - Afr Amer 75 mL/min (>60); Globulin 5.5 g/dL (2.2-4.2); Glucose 159 mg/dL (74-106); Magnesium 2.1 mg/dL (1.6-2.6); Phosphorus 4.6 mg/dL (2.5-4.9); Potassium 4.3 mmol/L (3.5-5.1); Protein, Total 7.7 g/dL (6.4-8.2); Sodium Level 139 mmol/L (136-145)
== END | disposition home or self-care (01) ==
LOC: LABSPEC 12:58
PROVIDERS: PCP Family Medicine
DX: E43 Unspecified severe protein-calorie malnutrition (principal)
CPT/HCPCS: 80053; 83735; 84100; 85027